=== PATIENT | male | born 1930 | race Hispanic/Latino ===

== ENCOUNTER 2018-04-29 15:52 | Inpatient (IN) | payer MEDICARE ==
[2018-04-29 15:58] VITALS: BMI 24.3
--- NOTE | 2018-04-29 17:43 | C.PDOC ---
History Of Present Illness <Felecia Begum - Last Filed: 04/29/18 19:01> <Ceci Young - Last Filed: 04/29/18 19:55> 87 y/o male with history of Colitis presents to ED with c/o increased weakness, diarrhea, urinary retention and hematuria for 4 days. As per family patient is unable to walk with walker secondary to weakness on lower extremities. Patient has normal appetite and denies fever, abdominal pain, vomiting, back pain or any other complaints at this time. (Felecia Begum) History Per: Patient, Family History/Exam Limitations: no limitations Onset/Duration Of Symptoms: Days Current Symptoms Are (Timing): Still Present Quality Of Discomfort: "Pain" Associated Symptoms: Urinary Symptoms <Felecia Begum - Last Filed: 04/29/18 19:01> <Ceci Young - Last Filed: 04/29/18 19:55> Time Seen by Provider: 04/29/18 16:53 Chief Complaint (Nursing): Male Genitourinary Past Medical History Reviewed: Historical Data, Nursing Documentation, Vital Signs - Medical History PMH: HTN Surgical History: Cholecystectomy Family History: States: No Known Family Hx - Social History Hx Alcohol Use: No Hx Substance Use: No - Immunization History Hx Tetanus Toxoid Vaccination: No Hx Influenza Vaccination: No Hx Pneumococcal Vaccination: Yes <Felecia Begum - Last Filed: 04/29/18 19:01> Vital Signs: Last Vital Signs Temp 98.9 F 04/29/18 17:45 Pulse 90 04/29/18 17:45 Resp 20 04/29/18 17:45 BP 143/76 04/29/18 17:45 Pulse Ox 97 04/29/18 19:04 Review Of Systems Constitutional: Negative for: Fever, Chills Gastrointestinal: Positive for: Diarrhea. Negative for: Nausea, Vomiting, Abdominal Pain Genitourinary: Positive for: Hematuria, Other (urinary retention ) Musculoskeletal: Negative for: Arm Pain, Back Pain Neurological: Positive for: Weakness. Negative for: Numbness <Felecia Begum - Last Filed: 04/29/18 19:01> Physical Exam - Physical Exam Appears: Non-toxic, No Acute Distress Skin: Warm, Dry, No Rash Head: Atraumatic, Normacephalic Eye(s): bilateral: Normal Inspection Oral Mucosa: Moist Throat: No Erythema, No Exudate Neck: Normal ROM, Supple Chest: Symmetrical, No Tenderness Cardiovascular: Rhythm Regular Respiratory: Decreased Breath Sounds, No Accessory Muscle Use, No Rales, No Rhonchi, No Wheezing Gastrointestinal/Abdominal: Soft, No Tenderness, No Guarding, No Rebound Back: No CVA Tenderness Extremity: Pedal Edema (bilateral ), Capillary Refill (<2 seconds), No Deformity Neurological/Psych: Oriented x3, Normal Speech, Normal Cognition, Normal Motor, Normal Sensation Gait: Steady <Felecia Begum - Last Filed: 04/29/18 19:01> ED Course And Treatment - Laboratory Results Result Diagrams: 04/29/18 18:22 04/29/18 18:22 O2 Sat by Pulse Oximetry: 97 (RA) Pulse Ox Interpretation: Normal <Felecia Begum - Last Filed: 04/29/18 19:01> - Laboratory Results Result Diagrams: 04/29/18 18:22 04/29/18 18:22 <Ceci Young - Last Filed: 04/29/18 19:55> Medical Decision Making <Felecia Begum - Last Filed: 04/29/18 19:01> <Ceci Young - Last Filed: 04/29/18 19:55> Medical Decision Making: blood cultures sent. Rocephin and Zithromax IV ordered. (Felecia Begum) Disposition - Disposition Disposition Time: 19:01 - POA Present On Arrival: None <Felecia Begum - Last Filed: 04/29/18 19:01> Discussed With : Andres Plasencia Comment: accepted the pt on his service and took over the care at 7:55 PM Doctor Will See Patient In The: ED Counseled Patient/Family Regarding: Studies Performed <Ceci Young - Last Filed: 04/29/18 19:55> - Disposition Disposition: HOSPITALIZED Condition: FAIR Forms: [facility] (Faroese) - Clinical Impression Clinical Impression: Pneumonia - PA / LAB[employer] / Resident Statement MD/DO has reviewed & agrees with the documentation as recorded. - Scribe Statement The provider has reviewed the documentation as recorded by the Scribe <Felecia Begum - Last Filed: 04/29/18 19:01> <Ceci Young - Last Filed: 04/29/18 19:55> - Scribe Statement Violet Peña All medical record entries made by the Scribe were at my direction and personally dictated by me. I have reviewed the chart and agree that the record accurately reflects my personal performance of the history, physical exam, medical decision making, and the department course for this patient. I have also personally directed, reviewed, and agree with the discharge instructions and disposition. (Felecia Begum) Physician Patient Turnover Patient Signed Over To: Ceci Young Handoff Comments: Pending admission <Felecia Begum - Last Filed: 04/29/18 19:01> Decision To Admit <Felecia Begum - Last Filed: 04/29/18 19:01> - Pt Status Changed To: Hospital Disposition Of: Inpatient - Admit Certification Admit to Inpatient:: After my assessment, the patient will require hospitalization for at least two midnights. This is because of the severity of symptoms shown, intensity of services needed, and/or the medical risk in this patient being treated as an outpatient. - InPatient: Physician Admission Certification: I certify that this patient requires 2 or more midnights of care for the following reason:: After my assessment, the patient will require hospitalization for at least two midnights. This is because of the severity of symptoms shown, intensity of services needed, and/or the medical risk in this patient being treated as an outpatient. - . Bed Request Type: Regular Admitting Physician: Andres Plasencia <Ceci Young - Last Filed: 04/29/18 19:55> - . Patient Diagnosis: Pneumonia
[2018-04-29 18:30] LABS: BASO # 0.1 K/uL (0.0-0.2); BASO % 0.4 % (0.0-2.0); EOS # 0.1 K/uL (0.0-0.7); EOS % 0.7 % (0.0-4.0); HEMOGLOBIN 12.4 g/dL (12.0-18.0); LYMPH # 1.5 K/uL (1.0-4.3); LYMPH % 7.9 % (20.0-40.0); MEAN CELL VOLUME 86.6 fL (80.0-94.0); MEAN CORPUSCULAR HEMOGLOBIN 29.1 pg (27.0-31.0); MEAN CORPUSCULAR HGB CONC 33.7 g/dL (33.0-37.0); MEAN PLATELET VOLUME 8.7 fL (7.2-11.7); MONO # 1.3 K/uL (0.0-0.8); MONO % 6.7 % (0.0-10.0); NEUT # 16.2 K/uL (1.8-7.0); NEUT % 84.3 % (50.0-75.0); PLATELET COUNT 214 K/uL (130-400); RBC 4.25 Mil/uL (4.40-5.90); RED CELL DISTRIBUTION WIDTH 14.3 % (11.5-14.5); WHITE BLOOD COUNT 19.2 K/uL (4.8-10.8)
--- NOTE | 2018-04-29 18:32 | RAD ---
Date of service: 04/29/2018 PROCEDURE: CHEST RADIOGRAPH, 1 VIEW HISTORY: weakness, cough COMPARISON: None available. FINDINGS: LUNGS: Extensive right lower lobe alveolar infiltrate likely pneumonia. PLEURA: No pneumothorax or pleural fluid seen. CARDIOVASCULAR: No radiographic findings to suggest acute or significant cardiovascular disease. OSSEOUS STRUCTURES: No significant abnormalities. VISUALIZED UPPER ABDOMEN: Normal. OTHER FINDINGS: None. IMPRESSION: Right lower lobe pneumonia.
[2018-04-29 18:34] LABS: INR 1.2; PROTHROMBIN TIME 13.5 SECONDS (9.7-12.2)
[2018-04-29 18:49] LABS: ALB/GLOB RATIO 1.2 (1.0-2.1); ALBUMIN 3.8 g/dL (3.5-5.0); GFR AFRICAN-AMERICAN > 60; GFR NON-AFRICAN AMERICAN > 60
[2018-04-29 18:53] LABS: URINE BILIRUBIN NEGATIVE (NEGATIVE); URINE BLOOD 1+ (NEGATIVE); URINE CLARITY Clear (Clear); URINE COLOR Yellow (YELLOW); URINE GLUCOSE (UA) NORMAL (Normal); URINE HYALINE CAST 0-2 /lpf (0-2); URINE LEUKOCYTE ESTERASE NEG Leu/uL (Negative); URINE PROTEIN 1+ mg/dL (NEGATIVE); URINE UROBILINOGEN NORMAL mg/dL (0.2-1.0)
[2018-04-29 18:57] LABS: ALT/SGPT 105 U/L (21-72); AST/SGOT 229 U/L (17-59); BLOOD UREA NITROGEN 30 mg/dL (9-20)
[2018-04-29 18:58] LABS: B-TYPE NATRIURETIC PEPTIDE 295 pg/mL (0-900); CK-MB 4.51 ng/mL (0.0-3.38)
[2018-04-29] MEDS ORDERED: cefTRIAXone IV 1 gm in Dextros 50 ML IV ONE (18:58)
[2018-04-29] MEDS ORDERED: Azithromycin 500mg/250ML NS 500 MG/250 ML BAG IVPB STA ×2 (19:00→20:00)
[2018-04-29 19:44] LABS: VENOUS BLOOD GAS BASE EXCESS 2.7 mmol/L (0.0-2.0); VENOUS BLOOD GAS PCO2 36 mmHg (40-60); VENOUS BLOOD GAS PO2 49 mm/Hg (30-55); VENOUS BLOOD PH 7.47 (7.32-7.43)
[2018-04-29 19:49] LABS: LYMPHOCYTE 13 % (20-40); MONOCYTE 6 % (0-10); NEUTROPHIL 81 % (50-75); PLATELET ESTIMATE NORMAL (NORMAL); TOTAL CELLS COUNTED 100
[2018-04-29] MEDS ORDERED: Lactated Ringer's 1,000 ML ONE (20:00)
[2018-04-29 22:15] LABS: VENOUS BLOOD GAS BASE EXCESS 2.2 mmol/L (0.0-2.0); VENOUS BLOOD GAS PCO2 33 mmHg (40-60); VENOUS BLOOD GAS PO2 65 mm/Hg (30-55); VENOUS BLOOD PH 7.49 (7.32-7.43)
--- NOTE | 2018-04-29 22:37 | CP.PCM.HP ---
<Elle Hammonds - Last Filed: 04/30/18 04:59> History of Present Illness - History of Present Illness History of Present Illness: HPI: Patient is an 87 year old male with a past medical history of hypertension. Patient is a poor historian and states he is not sure why he came to the hospital and that his PMD sent him to the ER. The patient is oriented to place, but does not respond to questioning about time. Per the ER physician, the patient was brought in due to weakness. Chest xray was ordered while in ED and showed right lower lobe pneumonia. The patient has no complaints at time of examination. He states that he occasionally has a cough, but denies having a cough currently. Remaining review of systems was negative. PMD: Dr. Henderson PMHx: HTN SurgHx: denies; per EMR- cholecystectomy FamHx: unknown SocHx: denies tobacco/alcohol/drug use Allergies: NKDA Medications: "medication for blood pressure" Present on Admission - Present on Admission Any Indicators Present on Admission: No Review of Systems - Review of Systems Systems not reviewed;Unavailable: Altered Mental Status, Uncooperative Past Patient History - Past Social History Smoking Status: Never Smoked - CARDIAC Hx Hypertension: Yes - GASTROINTESTINAL Hx Gastrointestinal Disorders: Yes Hx Colitis: Yes - PSYCHIATRIC Hx Substance Use: No - SURGICAL HISTORY Hx Cholecystectomy: Yes - ANESTHESIA Hx Anesthesia: Yes Hx Anesthesia Reactions: No Meds Allergies/Adverse Reactions: Allergies Allergy/AdvReac Type Severity Reaction Status Date / Time No Known Allergies Allergy Verified 04/29/18 15:55 Physical Exam - Constitutional Appears: No Acute Distress - Head Exam Head Exam: ATRAUMATIC, NORMAL INSPECTION - Eye Exam Eye Exam: EOMI, Normal appearance - ENT Exam ENT Exam: Mucous Membranes Moist - Respiratory Exam Respiratory Exam: Decreased Breath Sounds, NORMAL BREATHING PATTERN. absent: Rales, Rhonchi, Wheezes, Respiratory Distress - Cardiovascular Exam Cardiovascular Exam: REGULAR RHYTHM, +S1, +S2 - GI/Abdominal Exam GI & Abdominal Exam: Normal Bowel Sounds, Soft. absent: Distended, Firm, Mass - Extremities Exam Extremities exam: Positive for: normal inspection, pedal pulses present. Negative for: pedal edema, tenderness - Neurological Exam Neurological exam: Alert, Altered - Psychiatric Exam Psychiatric exam: Normal Affect, Normal Mood - Skin Skin Exam: Dry, Intact, Warm Results - Vital Signs Recent Vital Signs: Last Vital Signs Temp 99.1 F 04/29/18 22:04 Pulse 88 04/29/18 22:04 Resp 18 04/29/18 22:04 BP 136/62 04/29/18 22:04 Pulse Ox 98 04/29/18 22:04 - Labs Result Diagrams: 04/29/18 18:22 04/29/18 18:22 Labs: Laboratory Results - last 24 hr 04/29/18 04/29/18 04/29/18 10:11 18:22 18:22 WBC 19.2 H RBC 4.25 L Hgb 12.4 D Hct 36.8 MCV 86.6 MCH 29.1 MCHC 33.7 RDW 14.3 Plt Count 214 MPV 8.7 Neut % (Auto) 84.3 H Lymph % (Auto) 7.9 L [place] % (Auto) 6.7 Eos % (Auto) 0.7 Baso % (Auto) 0.4 Neut # (Auto) 16.2 H Lymph # (Auto) 1.5 [place] # (Auto) 1.3 H Eos # (Auto) 0.1 Baso # (Auto) 0.1 Neutrophils % (Manual) 81 H Lymphocytes % (Manual) 13 L Monocytes % (Manual) 6 Platelet Estimate Normal PT INR APTT pO2 65 H VBG pH 7.49 H VBG pCO2 33 L VBG HCO3 26.6 VBG Total CO2 26.1 VBG O2 Sat (Calc) 96.0 H VBG Base Excess 2.2 H VBG Potassium 2.9 L Sodium 139.0 136 Chloride 109.0 H 94 L Glucose 98 Lactate 0.9 FiO2 21.0 Potassium 4.5 Carbon Dioxide 31 H Anion Gap 16 BUN 30 H Creatinine 0.8 Est GFR ( Amer) > 60 Est GFR (Non-Af Amer) > 60 Random Glucose 115 H Calcium 9.0 Phosphorus Magnesium Total Bilirubin 1.5 H AST 229 H D ALT 105 H D Alkaline Phosphatase 315 H D Total Creatine Kinase 236 H CK-MB (Mass) 4.51 H NT-Pro-B Natriuret Pep 295 Total Protein 7.0 Albumin 3.8 Globulin 3.2 Albumin/Globulin Ratio 1.2 Venous Blood Potassium 2.9 L Urine Color Urine Clarity Urine pH Ur Specific [place] Urine Protein Urine Glucose (UA) Urine Ketones Urine Blood Urine Nitrate Urine Bilirubin Urine Urobilinogen Ur Leukocyte Esterase Urine WBC (Auto) Urine RBC (Auto) Hyaline Casts 04/29/18 04/29/18 04/29/18 18:22 18:42 19:38 WBC RBC Hgb Hct MCV MCH MCHC RDW Plt Count MPV Neut % (Auto) Lymph % (Auto) [place] % (Auto) Eos % (Auto) Baso % (Auto) Neut # (Auto) Lymph # (Auto) [place] # (Auto) Eos # (Auto) Baso # (Auto) Neutrophils % (Manual) Lymphocytes % (Manual) Monocytes % (Manual) Platelet Estimate PT 13.5 H INR 1.2 APTT 39 H pO2 VBG pH VBG pCO2 VBG HCO3 VBG Total CO2 VBG O2 Sat (Calc) VBG Base Excess VBG Potassium Sodium Chloride Glucose Lactate FiO2 Potassium Carbon Dioxide Anion Gap BUN Creatinine Est GFR ( Amer) Est GFR (Non-Af Amer) Random Glucose Calcium Phosphorus 2.8 Magnesium 1.7 Total Bilirubin AST ALT Alkaline Phosphatase Total Creatine Kinase CK-MB (Mass) NT-Pro-B Natriuret Pep Total Protein Albumin Globulin Albumin/Globulin Ratio Venous Blood Potassium Urine Color Yellow Urine Clarity Clear Urine pH 6.0 Ur Specific [place] 1.016 Urine Protein 1+ H Urine Glucose (UA) Normal Urine Ketones Negative Urine Blood 1+ H Urine Nitrate Negative Urine Bilirubin Negative Urine Urobilinogen Normal Ur Leukocyte Esterase Neg Urine WBC (Auto) 1 Urine RBC (Auto) 6 H Hyaline Casts 0-2 04/29/18 19:40 WBC RBC Hgb Hct MCV MCH MCHC RDW Plt Count MPV Neut % (Auto) Lymph % (Auto) [place] % (Auto) Eos % (Auto) Baso % (Auto) Neut # (Auto) Lymph # (Auto) [place] # (Auto) Eos # (Auto) Baso # (Auto) Neutrophils % (Manual) Lymphocytes % (Manual) Monocytes % (Manual) Platelet Estimate PT INR APTT pO2 49 VBG pH 7.47 H VBG pCO2 36 L VBG HCO3 26.7 VBG Total CO2 27.3 VBG O2 Sat (Calc) 88.1 H VBG Base Excess 2.7 H VBG Potassium 2.8 L Sodium 140.0 Chloride 107.0 Glucose 95 Lactate 1.1 FiO2 21.0 Potassium Carbon Dioxide Anion Gap BUN Creatinine Est GFR ( Amer) Est GFR (Non-Af Amer) Random Glucose Calcium Phosphorus Magnesium Total Bilirubin AST ALT Alkaline Phosphatase Total Creatine Kinase CK-MB (Mass) NT-Pro-B Natriuret Pep Total Protein Albumin Globulin Albumin/Globulin Ratio Venous Blood Potassium 2.8 L Urine Color Urine Clarity Urine pH Ur Specific [place] Urine Protein Urine Glucose (UA) Urine Ketones Urine Blood Urine Nitrate Urine Bilirubin Urine Urobilinogen Ur Leukocyte Esterase Urine WBC (Auto) Urine RBC (Auto) Hyaline Casts Assessment & Plan - Assessment and Plan (Free Text) Assessment: Pneumonia - Afebrile - Leukocytosis - CXR: right lower lobe pneumonia - Chest CT: right middle and lower lobe pneumonia - Strep pneumo, mycoplasma pneumo, legionella: f/u - Blood cx: f/u - Procalcitonin: f/u - O2 via NC - Azithromycin 500mg IV daily - Rocephin 1gm IV daily - Continue to monitor Elevated LFTs - Abdomen CT: unremarkable - Continue to monitor labs Hypertension - Continue home medication: Metoprolol 25mg po daily Prophylaxis - DVT: SCDs, heparin 5000u SC Q12h - GI: not indicated - PT/OT <Andres Plasencia P - Last Filed: 04/30/18 06:45> Results - Vital Signs Recent Vital Signs: Last Vital Signs Temp 99 F 04/29/18 23:18 Pulse 70 04/29/18 23:18 Resp 20 04/29/18 23:18 BP 125/72 04/29/18 23:18 Pulse Ox 95 04/29/18 23:18 - Labs Result Diagrams: 04/29/18 18:22 04/29/18 18:22 Labs: Laboratory Results - last 24 hr 04/29/18 04/29/18 04/29/18 10:11 18:22 18:22 WBC 19.2 H RBC 4.25 L Hgb 12.4 D Hct 36.8 MCV 86.6 MCH 29.1 MCHC 33.7 RDW 14.3 Plt Count 214 MPV 8.7 Neut % (Auto) 84.3 H Lymph % (Auto) 7.9 L [place] % (Auto) 6.7 Eos % (Auto) 0.7 Baso % (Auto) 0.4 Neut # (Auto) 16.2 H Lymph # (Auto) 1.5 [place] # (Auto) 1.3 H Eos # (Auto) 0.1 Baso # (Auto) 0.1 Neutrophils % (Manual) 81 H Lymphocytes % (Manual) 13 L Monocytes % (Manual) 6 Platelet Estimate Normal PT INR APTT pO2 65 H VBG pH 7.49 H VBG pCO2 33 L VBG HCO3 26.6 VBG Total CO2 26.1 VBG O2 Sat (Calc) 96.0 H VBG Base Excess 2.2 H VBG Potassium 2.9 L Sodium 139.0 136 Chloride 109.0 H 94 L Glucose 98 Lactate 0.9 FiO2 21.0 Potassium 4.5 Carbon Dioxide 31 H Anion Gap 16 BUN 30 H Creatinine 0.8 Est GFR ( Amer) > 60 Est GFR (Non-Af Amer) > 60 Random Glucose 115 H Calcium 9.0 Phosphorus Magnesium Total Bilirubin 1.5 H AST 229 H D ALT 105 H D Alkaline Phosphatase 315 H D Total Creatine Kinase 236 H CK-MB (Mass) 4.51 H NT-Pro-B Natriuret Pep 295 Total Protein 7.0 Albumin 3.8 Globulin 3.2 Albumin/Globulin Ratio 1.2 Venous Blood Potassium 2.9 L Urine Color Urine Clarity Urine pH Ur Specific [place] Urine Protein Urine Glucose (UA) Urine Ketones Urine Blood Urine Nitrate Urine Bilirubin Urine Urobilinogen Ur Leukocyte Esterase Urine WBC (Auto) Urine RBC (Auto) Hyaline Casts 04/29/18 04/29/18 04/29/18 18:22 18:42 19:38 WBC RBC Hgb Hct MCV MCH MCHC RDW Plt Count MPV Neut % (Auto) Lymph % (Auto) [place] % (Auto) Eos % (Auto) Baso % (Auto) Neut # (Auto) Lymph # (Auto) [place] # (Auto) Eos # (Auto) Baso # (Auto) Neutrophils % (Manual) Lymphocytes % (Manual) Monocytes % (Manual) Platelet Estimate PT 13.5 H INR 1.2 APTT 39 H pO2 VBG pH VBG pCO2 VBG HCO3 VBG Total CO2 VBG O2 Sat (Calc) VBG Base Excess VBG Potassium Sodium Chloride Glucose Lactate FiO2 Potassium Carbon Dioxide Anion Gap BUN Creatinine Est GFR ( Amer) Est GFR (Non-Af Amer) Random Glucose Calcium Phosphorus 2.8 Magnesium 1.7 Total Bilirubin AST ALT Alkaline Phosphatase Total Creatine Kinase CK-MB (Mass) NT-Pro-B Natriuret Pep Total Protein Albumin Globulin Albumin/Globulin Ratio Venous Blood Potassium Urine Color Yellow Urine Clarity Clear Urine pH 6.0 Ur Specific [place] 1.016 Urine Protein 1+ H Urine Glucose (UA) Normal Urine Ketones Negative Urine Blood 1+ H Urine Nitrate Negative Urine Bilirubin Negative Urine Urobilinogen Normal Ur Leukocyte Esterase Neg Urine WBC (Auto) 1 Urine RBC (Auto) 6 H Hyaline Casts 0-2 04/29/18 19:40 WBC RBC Hgb Hct MCV MCH MCHC RDW Plt Count MPV Neut % (Auto) Lymph % (Auto) [place] % (Auto) Eos % (Auto) Baso % (Auto) Neut # (Auto) Lymph # (Auto) [place] # (Auto) Eos # (Auto) Baso # (Auto) Neutrophils % (Manual) Lymphocytes % (Manual) Monocytes % (Manual) Platelet Estimate PT INR APTT pO2 49 VBG pH 7.47 H VBG pCO2 36 L VBG HCO3 26.7 VBG Total CO2 27.3 VBG O2 Sat (Calc) 88.1 H VBG Base Excess 2.7 H VBG Potassium 2.8 L Sodium 140.0 Chloride 107.0 Glucose 95 Lactate 1.1 FiO2 21.0 Potassium Carbon Dioxide Anion Gap BUN Creatinine Est GFR ( Amer) Est GFR (Non-Af Amer) Random Glucose Calcium Phosphorus Magnesium Total Bilirubin AST ALT Alkaline Phosphatase Total Creatine Kinase CK-MB (Mass) NT-Pro-B Natriuret Pep Total Protein Albumin Globulin Albumin/Globulin Ratio Venous Blood Potassium 2.8 L Urine Color Urine Clarity Urine pH Ur Specific [place] Urine Protein Urine Glucose (UA) Urine Ketones Urine Blood Urine Nitrate Urine Bilirubin Urine Urobilinogen Ur Leukocyte Esterase Urine WBC (Auto) Urine RBC (Auto) Hyaline Casts Attending/Attestation - Attestation I have personally seen and examined this patient.: Yes I have fully participated in the care of the patient.: Yes I have reviewed all pertinent clinical information: Yes Notes (Text): 04/30/18 06:39 Assessment * Patient brought to the hospital with c/o weakness, difficulty in walking, no fever, but had some cough, labs showing leucocytosis, transaminitis. * CT confirm right middle and lower lobe consolidation, patient on exam neither sob or hypoxic or febrile hence should be followed up with CXR in about 1-2 months for complete resolution. * Dementia/language barrier hence limited information * Slight transaminitis likely due to proximity to consolidation. Plan * Abx iv * IVF * GI/DVT prophylaxis * Home meds to confirm along with pmh with family and pmd * See orders for detail.
[2018-04-30] MEDS: Sodium Chloride 0.9% 1,000 ML IV SCH ×2 (01:35→14:44)
[2018-04-30 07:47] LABS: BASO # 0.1 K/uL (0.0-0.2); BASO % 0.5 % (0.0-2.0); EOS # 0.1 K/uL (0.0-0.7); EOS % 0.6 % (0.0-4.0); HEMOGLOBIN 11.1 g/dL (12.0-18.0); LYMPH % 6.1 % (20.0-40.0); MEAN CELL VOLUME 86.8 fL (80.0-94.0); MEAN CORPUSCULAR HEMOGLOBIN 29.4 pg (27.0-31.0); MEAN CORPUSCULAR HGB CONC 33.8 g/dL (33.0-37.0); MEAN PLATELET VOLUME 8.5 fL (7.2-11.7); MONO % 6.3 % (0.0-10.0); NEUT # 14.1 K/uL (1.8-7.0); NEUT % 86.5 % (50.0-75.0); PLATELET COUNT 186 K/uL (130-400); RBC 3.77 Mil/uL (4.40-5.90); RED CELL DISTRIBUTION WIDTH 14.2 % (11.5-14.5); WHITE BLOOD COUNT 16.3 K/uL (4.8-10.8)
--- NOTE | 2018-04-30 07:52 | CP.PCM.PN ---
<Sana Cohen L - Last Filed: 04/30/18 20:24> Subjective - Date & Time of Evaluation Date of Evaluation: 04/30/18 Time of Evaluation: 07:52 - Subjective Subjective: Resident Progress Note for Hospitalist Service Patient examined at bedside. Patient's was present. Patient was resting comfortably in bed and eating. No acute events overnight. Denies chest pain, shortness of breath, abdominal pain, nausea, vomiting, changes in bowel movements, dysuria. Objective - Vital Signs/Intake and Output Vital Signs (last 24 hours): Temp Pulse Resp BP Pulse Ox 99 F 70 20 125/72 95 04/29/18 23:18 04/29/18 23:18 04/29/18 23:18 04/29/18 23:18 04/29/18 23:18 - Medications Medications: Current Medications Heparin Sodium (Porcine) (Heparin) 5,000 units SC Q12 [facility] Sodium Chloride (Sodium Chloride 0.9%) 1,000 mls @ 75 mls/hr IV .[id number] [facility] Last Admin: 04/30/18 01:35 Dose: 75 mls/hr Azithromycin 500 mg/ Sodium (Chloride) 250 mls @ 250 mls/hr IVPB DAILY [facility] PRN Reason: Protocol Ceftriaxone Sodium 1 gm/ (Sodium Chloride) 100 mls @ 100 mls/hr IVPB DAILY [facility] PRN Reason: Protocol Metoprolol Succinate (Toprol Xl) 25 mg PO DAILY [facility] - Labs Labs: 04/29/18 18:22 04/29/18 18:22 PT 13.5 SECONDS (9.7-12.2) H 04/29/18 18:22 INR 1.2 04/29/18 18:22 APTT 39 SECONDS (21-34) H 04/29/18 18:22 - Constitutional Appears: Well, No Acute Distress - Head Exam Head Exam: NORMOCEPHALIC Additional comments: Small abrasions on head from recent fall - Eye Exam Eye Exam: EOMI, Normal appearance - ENT Exam ENT Exam: Mucous Membranes Moist, Normal Exam - Neck Exam Neck Exam: Full ROM, Normal Inspection - Respiratory Exam Respiratory Exam: NORMAL BREATHING PATTERN. absent: Rhonchi, Wheezes, Respiratory Distress Additional comments: Crackles in right lower lung velasquez - Cardiovascular Exam Cardiovascular Exam: REGULAR RHYTHM, +S1, +S2 - GI/Abdominal Exam GI & Abdominal Exam: Soft, Normal Bowel Sounds. absent: Distended, Firm, Tenderness, Organomegaly - Extremities Exam Extremities Exam: Normal Capillary Refill, Normal Inspection. absent: Tenderness - Back Exam Back Exam: NORMAL INSPECTION - Neurological Exam Neurological Exam: Alert, Awake - Psychiatric Exam Psychiatric exam: Normal Affect, Normal Mood - Skin Skin Exam: Dry, Intact Additional comments: Ecchymosis on right hip from fall Assessment and Plan - Assessment and Plan (Free Text) Plan: Pneumonia - Afebrile - Leukocytosis trending down - CXR shows right lower lobe pneumonia - Chest CT shows right middle and lower lobe pneumonia - Follow up Strep pneumo, mycoplasma pneumo, legionella - Followup blood cx - Followup procalcitonin - O2 via NC - Azithromycin 500mg IV daily - Rocephin 1gm IV daily - Continue to monitor Fall - Patient has history of CVA with residual left sided weakness - Patient typically uses walker at home - Head CT shows mild to moderate chronic periventricular white matter ischemic changes multiple more discrete deep and subcortical white matter as well basal nuclei and possibly brainstem lacunar type infarcts. Moderate to significant generalized volume loss. Transaminitis - LFTs trending down - Abdomen CT: Inferior margin of the unenhanced liver incompletely visualized. The visualized portions of the liver unremarkable without masses collections or calcifications. Cholecystectomy. - Continue to monitor labs Hypertension - Continue home medication: Metoprolol 25mg po daily - Heart healthy diet - Patient's cardiology history is unclear. Cardio Dr. Bliss consulted. Appreciate recs. History of ulcerative colitis - GI consulted. Appreciate recs. Prophylaxis - DVT: SCDs, heparin 5000u SC Q12h - GI: not indicated - Lactobacillus acidophilus 1 cap PO BID - PT/OT Sana Cohen PGY-1 <Micky Faust - Last Filed: 05/02/18 22:53> Objective - Vital Signs/Intake and Output Vital Signs (last 24 hours): Temp Pulse Resp BP Pulse Ox 98 F 86 20 150/72 96 05/02/18 15:47 05/02/18 15:47 05/02/18 15:47 05/02/18 15:47 05/02/18 15:47 Intake and Output: 05/02/18 05/03/18 18:59 06:59 Intake Total 650 Balance 650 - Medications Medications: Current Medications Aspirin (Aspirin Chewable) 81 mg PO DAILY [facility] Last Admin: 05/02/18 09:55 Dose: 81 mg Heparin Sodium (Porcine) (Heparin) 5,000 units SC Q12 [facility] Last Admin: 05/02/18 22:04 Dose: 5,000 units Azithromycin 500 mg/ Sodium (Chloride) 250 mls @ 250 mls/hr IVPB DAILY [facility] PRN Reason: Protocol Last Admin: 05/02/18 10:54 Dose: 250 mls/hr Piperacillin Sod/Tazobactam Sod (Zosyn 3.375 Gm Iv Premix) 3.375 gm in 50 mls @ 100 mls/hr IVPB Q8H [facility] PRN Reason: Protocol Last Admin: 05/02/18 22:04 Dose: 100 mls/hr Lactobacillus Acidophilus (Bacid Acidophilus) 1 cap PO BID [facility] Last Admin: 05/02/18 17:52 Dose: 1 cap Metoprolol Succinate (Toprol Xl) 25 mg PO DAILY [facility] Last Admin: 05/02/18 09:55 Dose: 25 mg Potassium Chloride (K-Dur 20 Meq Er Tab) 20 meq PO DAILY [facility] Last Admin: 05/02/18 09:55 Dose: 20 meq Rosuvastatin Calcium (Crestor) 5 mg PO HS [facility] Last Admin: 05/01/18 21:28 Dose: 5 mg - Labs Labs: 05/02/18 07:27 05/02/18 07:27 PT 13.5 SECONDS (9.7-12.2) H 04/29/18 18:22 INR 1.2 04/29/18 18:22 APTT 39 SECONDS (21-34) H 04/29/18 18:22 Attending/Attestation - Attestation I have personally seen and examined this patient.: Yes I have fully participated in the care of the patient.: Yes I have reviewed all pertinent clinical information, including history, physical exam and plan: Yes Notes (Text): 05/02/18 22:52 This is a late entry Care of this patient was gone over in detail with resident Dr. Vicki Faust D.O.
[2018-04-30 07:58] LABS: ALB/GLOB RATIO 1.1 (1.0-2.1); ALT/SGPT 67 U/L (21-72); AST/SGOT 106 U/L (17-59); BLOOD UREA NITROGEN 19 mg/dL (9-20); CALCIUM 8.5 mg/dl (8.6-10.4); GFR AFRICAN-AMERICAN > 60; GFR NON-AFRICAN AMERICAN > 60
[2018-04-30 09:58] LABS: BANDS 1 % (0-2); EOSINOPHIL 1 % (0-4); LYMPHOCYTE 5 % (20-40); MONOCYTE 5 % (0-10); NEUTROPHIL 88 % (50-75); PLATELET ESTIMATE NORMAL (NORMAL); TOTAL CELLS COUNTED 100
--- NOTE | 2018-04-30 10:17 | CT ---
Date of service: 04/30/2018 PROCEDURE: CT Chest and abdomen without intravenous and oral contrast HISTORY: Abnormal chest radiograph; elevated lfts COMPARISON: No prior study available for comparison. However correlation made with chest x-ray obtained earlier same day TECHNIQUE: IV dose administered: Radiation dose: Total exam DLP = mGy-cm. This CT exam was performed using one or more of the following dose reduction techniques: Automated exposure control, adjustment of the mA and/or kV according to patient size, and/or use of iterative reconstruction technique. FINDINGS: CT CHEST: LUNGS: Re- demonstrated to better advantage is right middle lobe and to a lesser degree right lower lobe consolidation changes likely representing pneumonia. There also mild atelectasis/ present both posterior sulci. Vague ground-glass opacities seen both lower lung velasquez. Centrilobular emphysematous changes. MEDIASTINUM: Heart size mildly enlarged. There is a small pericardial effusion. 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 Ascending thoracic aorta measures approximately 3.15 cm. Pulmonary trunk measures approximately 2.7 cm. LYMPH NODES: Few small nonspecific mediastinal lymph nodes are present one or 2 of which appear calcified consistent with prior exposure to granulomatous disease process. . Evaluation for hilar adenopathy is limited due to the lack of circulating intravenous contrast material. PLEURA: Unremarkable. No pneumothorax. No pleural fluid. BONES: Mild multilevel degenerative spondylosis of the thoracic spine. Sclerotic lesion within the T5 segment likely representing bone island or osteoma. Chronic compression deformity of the L2 segment. . Questionable old healed left posterior 11th and 12th rib fracture deformities. OTHER FINDINGS:: Central airways midline and patent. No large central endoluminal lesion. There is a small hiatal hernia. CT ABDOMEN: LIVER: Inferior margin of the unenhanced liver incompletely visualized. The visualized portions of the liver unremarkable without masses collections or calcifications. GALLBLADDER AND BILE DUCTS: Cholecystectomy. PANCREAS: Unre visualized portions the pancreas appear unremarkable. SPLEEN: Spleen is enlarged measuring just over 14 cm in AP dimension. No obvious splenic mass collection or calcification. ADRENALS: No adrenal lesions. . KIDNEYS AND URETERS: The inferior kidneys are not visualized on this exam. Visualized portions of the kidneys unremarkable without evidence of nephrolithiasis or hydronephrosis. No obvious renal mass or collection. Urinary bladder not visualized. VASCULATURE: Unremarkable. No aortic aneurysm. STOMACH AND BOWEL: Unremarkable, as visualized. . Note that the entire bowel including appendix was not visualized, as the pelvis was not included in this study. PERITONEUM: Unremarkable. No free fluid. No free air. LYMPH NODES: Unremarkable. No enlarged lymph nodes. BONES: Chronic appearing anterior wedge compression fracture L2 segment. OTHER FINDINGS: None. IMPRESSION: Right middle lobe and lower lobe infiltrate. Mild atelectasis both posterior sulci. Vague ground-glass opacities both lower lung zones. Centrilobular emphysematous changes. 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 Cardiomegaly with small pericardial effusion. Limited evaluation of the abdomen demonstrates no acute abnormalities. Chronic compression fracture L2 segment. Mild splenomegaly. Cholecystectomy Preliminary report provided by overnight radiology service
[2018-04-30] MEDS: Metoprolol Succinate 25 mg XL Tab PO SCH (10:46)
[2018-04-30] MEDS: Azithromycin 500 MG in Sodium Chloride 0.9% 250 ML IVPB SCH (12:06)
--- NOTE | 2018-04-30 16:03 | CT ---
Date of service: 04/30/2018 PROCEDURE: CT HEAD WITHOUT CONTRAST. HISTORY: History of CVA. C/O Weakness slinking to ground. COMPARISON: None available. TECHNIQUE: Axial computed tomography images were obtained through the head/brain without intravenous contrast. Radiation dose: Total exam DLP = 907.5 mGy-cm. This CT exam was performed using one or more of the following dose reduction techniques: Automated exposure control, adjustment of the mA and/or kV according to patient size, and/or use of iterative reconstruction technique. FINDINGS: HEMORRHAGE: No acute parenchymal, subarachnoid nor extra-axial BRAIN: Mild to moderate chronic periventricular white matter ischemic changes multiple more discrete deep and subcortical white matter as well basal nuclei and possibly brainstem lacunar type infarcts. Moderate to significant generalized volume loss. Vascular calcifications both carotid siphons VENTRICLES: No obstructive hydrocephalus. CALVARIUM: No acute calvarial fractures. PARANASAL SINUSES: Unremarkable as visualized. No significant inflammatory changes. MASTOID AIR CELLS: Unremarkable as visualized. No inflammatory changes. OTHER FINDINGS: None. IMPRESSION: Mild to moderate chronic periventricular white matter ischemic changes multiple more discrete deep and subcortical white matter as well basal nuclei and possibly brainstem lacunar type infarcts. Moderate to significant generalized volume loss.
--- NOTE | 2018-04-30 17:36 | CP.PCM.CON ---
History of Present Illness - History of Present Illness History of Present Illness: This is an 87 year old man with a history of ulcerative colitis admitted with pneumonia. Patient is known to me from the office. He has a long history of ulcerative colitis, 25 years, but has not had a flare up in many years. The last colonoscopy was 03/01/2015 and showed pseudopolyps in the descending colon and quiescent colitis. Patient was admitted 04/29/18 with weakness, diarrhea, urinary retentin and hematuria. Evaluation in the ER showed leukocytosis, WBC 19,200, and RML and RLL infiltrate on CT scan. He mentioned diarrhea to the ER physicians. However , during my interview, he states that did not have diarrhea at home and has not had a bowel movement since he was admitted to . He denies having nausea, vomiting, difficulty swallowing, heartburn, constipation and rectal beeding. Abnormal liver enzymes were also noted: AST 229, ALT 105, ALKP 315. Repeat values were as follows: AST 106, ALT 67, ALKP 238. Non contrast CT images of the liver showed S/P cholecystectomy and no other significant abnormalities. Review of Systems - Review of Systems All systems: reviewed and no additional remarkable complaints except - Constitutional Constitutional: Weakness. absent: Chills, Fever - Gastrointestinal Gastrointestinal: absent: Abdominal Pain, Constipation, Dysphagia, Heartburn, Hematochezia, Nausea, Vomiting - Genitourinary Genitourinary: Hematuria, Bladder Distension - Neurological Neurological: Weakness. absent: Numbness Past Patient History - Past Medical History & Family History Past Medical History?: Yes - Past Social History Smoking Status: Never Smoked - CARDIAC Hx Hypertension: Yes - PULMONARY Hx Respiratory Disorders: No - NEUROLOGICAL Hx Neurological Disorder: No - HEENT Hx HEENT Problems: No - RENAL Hx Chronic Kidney Disease: No - ENDOCRINE/METABOLIC Hx Endocrine Disorders: No - HEMATOLOGICAL/ONCOLOGICAL Hx Blood Disorders: No - INTEGUMENTARY Hx Dermatological Problems: No - MUSCULOSKELETAL/RHEUMATOLOGICAL Hx Falls: Yes - GASTROINTESTINAL Hx Gastrointestinal Disorders: Yes Hx Colitis: Yes - GENITOURINARY/GYNECOLOGICAL Hx Genitourinary Disorders: No - PSYCHIATRIC Hx Substance Use: No - SURGICAL HISTORY Hx Cholecystectomy: Yes - ANESTHESIA Hx Anesthesia: Yes Hx Anesthesia Reactions: No Meds Allergies/Adverse Reactions: Allergies Allergy/AdvReac Type Severity Reaction Status Date / Time No Known Allergies Allergy Verified 04/29/18 15:55 - Medications Medications: Current Medications Aspirin (Aspirin Chewable) 81 mg PO DAILY [facility] Heparin Sodium (Porcine) (Heparin) 5,000 units SC Q12 [facility] Last Admin: 04/30/18 10:46 Dose: 5,000 units Sodium Chloride (Sodium Chloride 0.9%) 1,000 mls @ 75 mls/hr IV .[id number] [facility] Last Admin: 04/30/18 14:44 Dose: 75 mls/hr Azithromycin 500 mg/ Sodium (Chloride) 250 mls @ 250 mls/hr IVPB DAILY [facility] PRN Reason: Protocol Last Admin: 04/30/18 12:06 Dose: 250 mls/hr Ceftriaxone Sodium 1 gm/ (Sodium Chloride) 100 mls @ 100 mls/hr IVPB DAILY [facility] PRN Reason: Protocol Last Admin: 04/30/18 10:45 Dose: 100 mls/hr Lactobacillus Acidophilus (Bacid Acidophilus) 1 cap PO BID [facility] Metoprolol Succinate (Toprol Xl) 25 mg PO DAILY [facility] Last Admin: 04/30/18 10:46 Dose: 25 mg Rosuvastatin Calcium (Crestor) 5 mg PO HS [facility] Physical Exam - Constitutional Appears: No Acute Distress - Head Exam Head Exam: ATRAUMATIC, NORMOCEPHALIC - Eye Exam Eye Exam: EOMI, PERRL - Neck Exam Neck exam: Negative for: Lymphadenopathy, Thyromegaly - Respiratory Exam Respiratory Exam: NORMAL BREATHING PATTERN. absent: Rales, Rhonchi, Wheezes - Cardiovascular Exam Cardiovascular Exam: REGULAR RHYTHM, +S1, +S2. absent: Gallop, Rubs, Systolic Murmur - GI/Abdominal Exam GI & Abdominal Exam: Normal Bowel Sounds, Soft. absent: Mass, Organomegaly, Tenderness - Rectal Exam Rectal Exam: Deferred - Extremities Exam Extremities exam: Negative for: calf tenderness, pedal edema Results - Vital Signs Recent Vital Signs: Last Vital Signs Temp 98.9 F 04/30/18 16:15 Pulse 84 04/30/18 16:15 Resp 20 04/30/18 16:15 BP 98/59 L 04/30/18 16:15 Pulse Ox 100 04/30/18 16:15 - Labs Result Diagrams: 04/30/18 07:33 04/30/18 07:33 Labs: Laboratory Results - last 24 hr 04/29/18 04/29/18 04/29/18 10:11 18:22 18:22 WBC 19.2 H RBC 4.25 L Hgb 12.4 D Hct 36.8 MCV 86.6 MCH 29.1 MCHC 33.7 RDW 14.3 Plt Count 214 MPV 8.7 Neut % (Auto) 84.3 H Lymph % (Auto) 7.9 L [place] % (Auto) 6.7 Eos % (Auto) 0.7 Baso % (Auto) 0.4 Neut # (Auto) 16.2 H Lymph # (Auto) 1.5 [place] # (Auto) 1.3 H Eos # (Auto) 0.1 Baso # (Auto) 0.1 Neutrophils % (Manual) 81 H Band Neutrophils % Lymphocytes % (Manual) 13 L Monocytes % (Manual) 6 Eosinophils % (Manual) Platelet Estimate Normal RBC Morphology PT INR APTT pO2 65 H VBG pH 7.49 H VBG pCO2 33 L VBG HCO3 26.6 VBG Total CO2 26.1 VBG O2 Sat (Calc) 96.0 H VBG Base Excess 2.2 H VBG Potassium 2.9 L Sodium 139.0 136 Chloride 109.0 H 94 L Glucose 98 Lactate 0.9 FiO2 21.0 Potassium 4.5 Carbon Dioxide 31 H Anion Gap 16 BUN 30 H Creatinine 0.8 Est GFR ( Amer) > 60 Est GFR (Non-Af Amer) > 60 Random Glucose 115 H Calcium 9.0 Phosphorus Magnesium Total Bilirubin 1.5 H AST 229 H D ALT 105 H D Alkaline Phosphatase 315 H D Total Creatine Kinase 236 H CK-MB (Mass) 4.51 H NT-Pro-B Natriuret Pep 295 Total Protein 7.0 Albumin 3.8 Globulin 3.2 Albumin/Globulin Ratio 1.2 Procalcitonin Venous Blood Potassium 2.9 L Urine Color Urine Clarity Urine pH Ur Specific [place] Urine Protein Urine Glucose (UA) Urine Ketones Urine Blood Urine Nitrate Urine Bilirubin Urine Urobilinogen Ur Leukocyte Esterase Urine WBC (Auto) Urine RBC (Auto) Hyaline Casts Influenza Typ A,B (EIA) 04/29/18 04/29/18 04/29/18 18:22 18:42 19:38 WBC RBC Hgb Hct MCV MCH MCHC RDW Plt Count MPV Neut % (Auto) Lymph % (Auto) [place] % (Auto) Eos % (Auto) Baso % (Auto) Neut # (Auto) Lymph # (Auto) [place] # (Auto) Eos # (Auto) Baso # (Auto) Neutrophils % (Manual) Band Neutrophils % Lymphocytes % (Manual) Monocytes % (Manual) Eosinophils % (Manual) Platelet Estimate RBC Morphology PT 13.5 H INR 1.2 APTT 39 H pO2 VBG pH VBG pCO2 VBG HCO3 VBG Total CO2 VBG O2 Sat (Calc) VBG Base Excess VBG Potassium Sodium Chloride Glucose Lactate FiO2 Potassium Carbon Dioxide Anion Gap BUN Creatinine Est GFR ( Amer) Est GFR (Non-Af Amer) Random Glucose Calcium Phosphorus 2.8 Magnesium 1.7 Total Bilirubin AST ALT Alkaline Phosphatase Total Creatine Kinase CK-MB (Mass) NT-Pro-B Natriuret Pep Total Protein Albumin Globulin Albumin/Globulin Ratio Procalcitonin Venous Blood Potassium Urine Color Yellow Urine Clarity Clear Urine pH 6.0 Ur Specific [place] 1.016 Urine Protein 1+ H Urine Glucose (UA) Normal Urine Ketones Negative Urine Blood 1+ H Urine Nitrate Negative Urine Bilirubin Negative Urine Urobilinogen Normal Ur Leukocyte Esterase Neg Urine WBC (Auto) 1 Urine RBC (Auto) 6 H Hyaline Casts 0-2 Influenza Typ A,B (EIA) 04/29/18 04/30/18 04/30/18 19:40 01:56 07:33 WBC 16.3 H RBC 3.77 L Hgb 11.1 L Hct 32.8 L MCV 86.8 MCH 29.4 MCHC 33.8 RDW 14.2 Plt Count 186 MPV 8.5 Neut % (Auto) 86.5 H Lymph % (Auto) 6.1 L [place] % (Auto) 6.3 Eos % (Auto) 0.6 Baso % (Auto) 0.5 Neut # (Auto) 14.1 H Lymph # (Auto) 1.0 [place] # (Auto) 1.0 H Eos # (Auto) 0.1 Baso # (Auto) 0.1 Neutrophils % (Manual) 88 H Band Neutrophils % 1 Lymphocytes % (Manual) 5 L Monocytes % (Manual) 5 Eosinophils % (Manual) 1 Platelet Estimate Normal RBC Morphology Normal PT INR APTT pO2 49 VBG pH 7.47 H VBG pCO2 36 L VBG HCO3 26.7 VBG Total CO2 27.3 VBG O2 Sat (Calc) 88.1 H VBG Base Excess 2.7 H VBG Potassium 2.8 L Sodium 140.0 Chloride 107.0 Glucose 95 Lactate 1.1 FiO2 21.0 Potassium Carbon Dioxide Anion Gap BUN Creatinine Est GFR ( Amer) Est GFR (Non-Af Amer) Random Glucose Calcium Phosphorus Magnesium Total Bilirubin AST ALT Alkaline Phosphatase Total Creatine Kinase CK-MB (Mass) NT-Pro-B Natriuret Pep Total Protein Albumin Globulin Albumin/Globulin Ratio Procalcitonin 0.47 Venous Blood Potassium 2.8 L Urine Color Urine Clarity Urine pH Ur Specific [place] Urine Protein Urine Glucose (UA) Urine Ketones Urine Blood Urine Nitrate Urine Bilirubin Urine Urobilinogen Ur Leukocyte Esterase Urine WBC (Auto) Urine RBC (Auto) Hyaline Casts Influenza Typ A,B (EIA) 04/30/18 04/30/18 07:33 13:31 WBC RBC Hgb Hct MCV MCH MCHC RDW Plt Count MPV Neut % (Auto) Lymph % (Auto) [place] % (Auto) Eos % (Auto) Baso % (Auto) Neut # (Auto) Lymph # (Auto) [place] # (Auto) Eos # (Auto) Baso # (Auto) Neutrophils % (Manual) Band Neutrophils % Lymphocytes % (Manual) Monocytes % (Manual) Eosinophils % (Manual) Platelet Estimate RBC Morphology PT INR APTT pO2 VBG pH VBG pCO2 VBG HCO3 VBG Total CO2 VBG O2 Sat (Calc) VBG Base Excess VBG Potassium Sodium 135 Chloride 98 Glucose Lactate FiO2 Potassium 3.8 Carbon Dioxide 29 Anion Gap 11 BUN 19 Creatinine 0.8 Est GFR ( Amer) > 60 Est GFR (Non-Af Amer) > 60 Random Glucose 116 H Calcium 8.5 L Phosphorus Magnesium Total Bilirubin 1.1 AST 106 H D ALT 67 Alkaline Phosphatase 238 H D Total Creatine Kinase CK-MB (Mass) NT-Pro-B Natriuret Pep Total Protein 5.8 L Albumin 3.0 L D Globulin 2.8 Albumin/Globulin Ratio 1.1 Procalcitonin Venous Blood Potassium Urine Color Urine Clarity Urine pH Ur Specific [place] Urine Protein Urine Glucose (UA) Urine Ketones Urine Blood Urine Nitrate Urine Bilirubin Urine Urobilinogen Ur Leukocyte Esterase Urine WBC (Auto) Urine RBC (Auto) Hyaline Casts Influenza Typ A,B (EIA) Negative for flu a/b Assessment & Plan (1) Diarrhea Assessment and Plan: Patient denies having diarrhea at this time. Will check stool for C+S, C diff, occult blood, leukocytes, calprotectin. Doubt exacerbation of colitis. Status: Acute (2) Liver enzyme elevation Assessment and Plan: Elevated liver enzymes were noted on admission. These are already improving. Possible etiologies include sepsis, drug-induced, retained CBD stone. Will repeat enzymes, check hepatitis serology and ultrasound. Status: Acute
[2018-04-30] MEDS: Lactobacillus Acidophilus 500 MU Cap PO SCH (17:59)
[2018-04-30 18:00] LABS: LEGIONELLA AG URINE NEGATIVE (NEGATIVE)
--- NOTE | 2018-04-30 18:21 | CP.PCM.CON ---
History of Present Illness - History of Present Illness History of Present Illness: 87 year old man admitted with pneumonia. ID consulted for antibiotic management He denies any recent travel or ill contacts No hemoptysis Patient was admitted 04/29/18 with weakness, diarrhea, urinary retentin and hematuria. Evaluation in the ER showed leukocytosis, WBC 19,200, and RML and RLL infiltrate on CT scan. He mentioned diarrhea to the ER physicians but has not had a bowel movement since he was admitted PMH + ulcerative colitis, 25 years, A Review of Systems - Review of Systems All systems: reviewed and no additional remarkable complaints except - Constitutional Constitutional: As Per HPI - EENT Eyes: absent: As Per HPI, Blind Spots, Blurred Vision, Change in Vision, Decreased Night Vision, Diplopia, Discharge, Dry Eye, Exophthalmos, Floaters, Irritation, Itchy Eyes, Loss of Peripheral Vision, Pain, Photophobia, Requires Corrective Lenses, Sees Flashes, Spots in Vision, Tunnel Vision, Other Visual Disturbances, Loss of Vision, Other Ears: absent: As Per HPI, Decreased Hearing, Ear Discharge, Ear Pain, Tinnitus, Abnormal Hearing, Disequilibrium, Dizziness, Other Nose/Mouth/Throat: absent: As Per HPI, Epistaxis, Nasal Congestion, Nasal Discharge, Nasal Obstruction, Nasal Trauma, Nose Pain, Post Nasal Drip, Sinus Pain, Sinus Pressure, Bleeding Gums, Change in Voice, Dental Pain, Dry Mouth, Dysphagia, Halitosis, Hoarsness, Lip Swelling, Mouth Lesions, Mouth Pain, Odynophagia, Sore Throat, Throat Swelling, Tongue Swelling, Facial Pain, Neck Pain, Neck Mass, Other - Cardiovascular Cardiovascular: absent: As Per HPI, Acrocyanosis, Chest Pain, Chest Pain at Rest , Chest Pain with Activity, Claudication, Diaphoresis, Dyspnea, Dyspnea on Exertion, Edema, Irregular Heart Rhythm, Pain Radiating to Arm/Neck/Jaw, Leg Edema, Leg Ulcers, Lightheadedness, Orthopnea, Palpitations, Paroxysmal Nocturnal Dyspnea, Pedal Edema, Radiating Pain, Rapid Heart Rate, Slow Heart Rate, Syncope, Other - Respiratory Respiratory: As Per HPI - Gastrointestinal Gastrointestinal: As Per HPI - Genitourinary Genitourinary: absent: As Per HPI, Change in Urinary Stream, Difficulty Urinating, Dysuria, Flank Pain, Hematuria, Pyuria, Nocturia, Urinary Incontinence, Urinary Frequency, Urinary Hesitance, Urinary Urgency, Voiding Freq/Small Amts, Freq UTI, Hx Renal/Bladder Calculi, Hx /Renal Surgery, Bladder Distension, Other - Musculoskeletal Musculoskeletal: absent: As Per HPI, Abnormal Gait, Arthralgias, Atrophy, Back Pain, Deformity, Joint Swelling, Limited Range of Motion, Loss of Height, Muscle Cramps, Muscle Weakness, Myalgias, Neck Pain, Numbness, Radiating Pain into Limb, Stiffness, Tingling, Other - Integumentary Integumentary: absent: As Per HPI, Acne, Alopecia, Bleeding Lesions, Change in Hair, Change in Nails, Change in Pigmentation, Changing Lesions, Dry Skin, Erythema, Furuncle, Hirsutism, Lesions, New Lesions, Non-Healing Lesions, Photosensitivity, Pruritus, Rash, Skin Pain, Skin Ulcer, Sores, Striae, Swelling , Unusual Bruising, Wounds, Jaundice, Other - Neurological Neurological: absent: As Per HPI, Abnormal Gait, Abnormal Hearing, Abnormal Movements, Abnormal Speech, Behavioral Changes, Burning Sensations, Confusion, Convulsions, Disequilibrium, Dizziness, Numbness, Focal Weakness, Frequent Falls , Headaches, Lack of Coordination, Loss of Vision, Memory Loss, Paresthesias, Radicular Pain, Restless Legs, Sensory Deficit, Syncope, Tingling, Tremor, Vertigo, Weakness, Other Visual Disturbances, Other - Psychiatric Psychiatric: absent: As Per HPI, Abnormal Sleep Pattern, Anhedonia, Anxiety, Auditory Hallucinations, Behavioral Changes, Change in Appetite, Change in Libido, Confusion, Depression, Difficulty Concentrating, Hallucinations, Homicidal Ideation, Hopelessness, Irritability, Memory Loss, Mood Swings, Panic Attacks, Paranoia, Suicidal Ideation, Visual Hallucinations, Tactile Hallucinations, Other - Endocrine Endocrine: absent: As Per HPI, Change in Body Appearance, Change in Libido, Cold Intolorance, Deepening of Voice, Excessive Sweating, Fatigue, Flushing, Heat Intolorance, Increase in Ring/Shoe/Hat Size, Palpitations, Polydipsia, Polyphagia, Polyuria, Other - Hematologic/Lymphatic Hematologic: absent: As Per HPI, Easy Bleeding, Easy Bruising, Lymphadenopathy, Other Past Patient History - Past Medical History & Family History Past Medical History?: Yes - Past Social History Smoking Status: Never Smoked - CARDIAC Hx Hypertension: Yes - PULMONARY Hx Respiratory Disorders: No - NEUROLOGICAL Hx Neurological Disorder: No - HEENT Hx HEENT Problems: No - RENAL Hx Chronic Kidney Disease: No - ENDOCRINE/METABOLIC Hx Endocrine Disorders: No - HEMATOLOGICAL/ONCOLOGICAL Hx Blood Disorders: No - INTEGUMENTARY Hx Dermatological Problems: No - MUSCULOSKELETAL/RHEUMATOLOGICAL Hx Falls: Yes - GASTROINTESTINAL Hx Gastrointestinal Disorders: Yes Hx Colitis: Yes - GENITOURINARY/GYNECOLOGICAL Hx Genitourinary Disorders: No - PSYCHIATRIC Hx Substance Use: No - SURGICAL HISTORY Hx Cholecystectomy: Yes - ANESTHESIA Hx Anesthesia: Yes Hx Anesthesia Reactions: No Meds Allergies/Adverse Reactions: Allergies Allergy/AdvReac Type Severity Reaction Status Date / Time No Known Allergies Allergy Verified 04/29/18 15:55 - Medications Medications: Current Medications Aspirin (Aspirin Chewable) 81 mg PO DAILY [facility] Heparin Sodium (Porcine) (Heparin) 5,000 units SC Q12 [facility] Last Admin: 04/30/18 10:46 Dose: 5,000 units Sodium Chloride (Sodium Chloride 0.9%) 1,000 mls @ 75 mls/hr IV .[id number] [facility] Last Admin: 04/30/18 14:44 Dose: 75 mls/hr Azithromycin 500 mg/ Sodium (Chloride) 250 mls @ 250 mls/hr IVPB DAILY [facility] PRN Reason: Protocol Last Admin: 04/30/18 12:06 Dose: 250 mls/hr Ceftriaxone Sodium 1 gm/ (Sodium Chloride) 100 mls @ 100 mls/hr IVPB DAILY [facility] PRN Reason: Protocol Last Admin: 04/30/18 10:45 Dose: 100 mls/hr Lactobacillus Acidophilus (Bacid Acidophilus) 1 cap PO BID [facility] Last Admin: 04/30/18 17:59 Dose: 1 cap Metoprolol Succinate (Toprol Xl) 25 mg PO DAILY [facility] Last Admin: 04/30/18 10:46 Dose: 25 mg Rosuvastatin Calcium (Crestor) 5 mg PO [facility] Physical Exam - Constitutional Appears: Non-toxic, Confused, Cachectic, Chronically Ill - Head Exam Head Exam: ATRAUMATIC, NORMAL INSPECTION, NORMOCEPHALIC - Eye Exam Eye Exam: absent: Scleral icterus Pupil Exam: NORMAL ACCOMODATION - ENT Exam ENT Exam: Mucous Membranes Dry, Normal External Ear Exam, Normal Oropharynx - Neck Exam Neck exam: Negative for: Lymphadenopathy - Respiratory Exam Respiratory Exam: Decreased Breath Sounds, Rhonchi - Cardiovascular Exam Cardiovascular Exam: REGULAR RHYTHM, +S1, +S2 - GI/Abdominal Exam GI & Abdominal Exam: Diminished Bowel Sounds, Soft. absent: Tenderness - Rectal Exam Rectal Exam: Deferred - Exam Exam: NORMAL INSPECTION - Extremities Exam Extremities exam: Positive for: pedal pulses present. Negative for: calf tenderness, pedal edema, tenderness - Back Exam Back exam: absent: CVA tenderness (L), CVA tenderness (R), paraspinal tenderness - Neurological Exam Neurological exam: Alert, Altered, CN II-XII Intact, Reflexes Normal - Psychiatric Exam Psychiatric exam: Depressed - Skin Skin Exam: Dry, Intact Results - Vital Signs Recent Vital Signs: Last Vital Signs Temp 98.9 F 04/30/18 16:15 Pulse 84 04/30/18 16:15 Resp 20 04/30/18 16:15 BP 98/59 L 04/30/18 16:15 Pulse Ox 100 04/30/18 16:15 - Labs Result Diagrams: 04/30/18 07:33 04/30/18 07:33 Labs: Laboratory Results - last 24 hr 04/29/18 04/29/18 04/29/18 10:11 18:22 18:22 WBC 19.2 H RBC 4.25 L Hgb 12.4 D Hct 36.8 MCV 86.6 MCH 29.1 MCHC 33.7 RDW 14.3 Plt Count 214 MPV 8.7 Neut % (Auto) 84.3 H Lymph % (Auto) 7.9 L [place] % (Auto) 6.7 Eos % (Auto) 0.7 Baso % (Auto) 0.4 Neut # (Auto) 16.2 H Lymph # (Auto) 1.5 [place] # (Auto) 1.3 H Eos # (Auto) 0.1 Baso # (Auto) 0.1 Neutrophils % (Manual) 81 H Band Neutrophils % Lymphocytes % (Manual) 13 L Monocytes % (Manual) 6 Eosinophils % (Manual) Platelet Estimate Normal RBC Morphology PT INR APTT pO2 65 H VBG pH 7.49 H VBG pCO2 33 L VBG HCO3 26.6 VBG Total CO2 26.1 VBG O2 Sat (Calc) 96.0 H VBG Base Excess 2.2 H VBG Potassium 2.9 L Sodium 139.0 136 Chloride 109.0 H 94 L Glucose 98 Lactate 0.9 FiO2 21.0 Potassium 4.5 Carbon Dioxide 31 H Anion Gap 16 BUN 30 H Creatinine 0.8 Est GFR ( Amer) > 60 Est GFR (Non-Af Amer) > 60 Random Glucose 115 H Calcium 9.0 Phosphorus Magnesium Total Bilirubin 1.5 H AST 229 H D ALT 105 H D Alkaline Phosphatase 315 H D Total Creatine Kinase 236 H CK-MB (Mass) 4.51 H NT-Pro-B Natriuret Pep 295 Total Protein 7.0 Albumin 3.8 Globulin 3.2 Albumin/Globulin Ratio 1.2 Procalcitonin Venous Blood Potassium 2.9 L Urine Color Urine Clarity Urine pH Ur Specific [place] Urine Protein Urine Glucose (UA) Urine Ketones Urine Blood Urine Nitrate Urine Bilirubin Urine Urobilinogen Ur Leukocyte Esterase Urine WBC (Auto) Urine RBC (Auto) Hyaline Casts Influenza Typ A,B (EIA) Ur L.pneumophila Ag 04/29/18 04/29/18 04/29/18 18:22 18:42 19:38 WBC RBC Hgb Hct MCV MCH MCHC RDW Plt Count MPV Neut % (Auto) Lymph % (Auto) [place] % (Auto) Eos % (Auto) Baso % (Auto) Neut # (Auto) Lymph # (Auto) [place] # (Auto) Eos # (Auto) Baso # (Auto) Neutrophils % (Manual) Band Neutrophils % Lymphocytes % (Manual) Monocytes % (Manual) Eosinophils % (Manual) Platelet Estimate RBC Morphology PT 13.5 H INR 1.2 APTT 39 H pO2 VBG pH VBG pCO2 VBG HCO3 VBG Total CO2 VBG O2 Sat (Calc) VBG Base Excess VBG Potassium Sodium Chloride Glucose Lactate FiO2 Potassium Carbon Dioxide Anion Gap BUN Creatinine Est GFR ( Amer) Est GFR (Non-Af Amer) Random Glucose Calcium Phosphorus 2.8 Magnesium 1.7 Total Bilirubin AST ALT Alkaline Phosphatase Total Creatine Kinase CK-MB (Mass) NT-Pro-B Natriuret Pep Total Protein Albumin Globulin Albumin/Globulin Ratio Procalcitonin Venous Blood Potassium Urine Color Yellow Urine Clarity Clear Urine pH 6.0 Ur Specific [place] 1.016 Urine Protein 1+ H Urine Glucose (UA) Normal Urine Ketones Negative Urine Blood 1+ H Urine Nitrate Negative Urine Bilirubin Negative Urine Urobilinogen Normal Ur Leukocyte Esterase Neg Urine WBC (Auto) 1 Urine RBC (Auto) 6 H Hyaline Casts 0-2 Influenza Typ A,B (EIA) Ur L.pneumophila Ag 04/29/18 04/30/18 04/30/18 19:40 01:56 07:33 WBC 16.3 H RBC 3.77 L Hgb 11.1 L Hct 32.8 L MCV 86.8 MCH 29.4 MCHC 33.8 RDW 14.2 Plt Count 186 MPV 8.5 Neut % (Auto) 86.5 H Lymph % (Auto) 6.1 L [place] % (Auto) 6.3 Eos % (Auto) 0.6 Baso % (Auto) 0.5 Neut # (Auto) 14.1 H Lymph # (Auto) 1.0 [place] # (Auto) 1.0 H Eos # (Auto) 0.1 Baso # (Auto) 0.1 Neutrophils % (Manual) 88 H Band Neutrophils % 1 Lymphocytes % (Manual) 5 L Monocytes % (Manual) 5 Eosinophils % (Manual) 1 Platelet Estimate Normal RBC Morphology Normal PT INR APTT pO2 49 VBG pH 7.47 H VBG pCO2 36 L VBG HCO3 26.7 VBG Total CO2 27.3 VBG O2 Sat (Calc) 88.1 H VBG Base Excess 2.7 H VBG Potassium 2.8 L Sodium 140.0 Chloride 107.0 Glucose 95 Lactate 1.1 FiO2 21.0 Potassium Carbon Dioxide Anion Gap BUN Creatinine Est GFR ( Amer) Est GFR (Non-Af Amer) Random Glucose Calcium Phosphorus Magnesium Total Bilirubin AST ALT Alkaline Phosphatase Total Creatine Kinase CK-MB (Mass) NT-Pro-B Natriuret Pep Total Protein Albumin Globulin Albumin/Globulin Ratio Procalcitonin 0.47 Venous Blood Potassium 2.8 L Urine Color Urine Clarity Urine pH Ur Specific [place] Urine Protein Urine Glucose (UA) Urine Ketones Urine Blood Urine Nitrate Urine Bilirubin Urine Urobilinogen Ur Leukocyte Esterase Urine WBC (Auto) Urine RBC (Auto) Hyaline Casts Influenza Typ A,B (EIA) Ur L.pneumophila Ag 04/30/18 04/30/18 04/30/18 07:33 13:31 15:55 WBC RBC Hgb Hct MCV MCH MCHC RDW Plt Count MPV Neut % (Auto) Lymph % (Auto) [place] % (Auto) Eos % (Auto) Baso % (Auto) Neut # (Auto) Lymph # (Auto) [place] # (Auto) Eos # (Auto) Baso # (Auto) Neutrophils % (Manual) Band Neutrophils % Lymphocytes % (Manual) Monocytes % (Manual) Eosinophils % (Manual) Platelet Estimate RBC Morphology PT INR APTT pO2 VBG pH VBG pCO2 VBG HCO3 VBG Total CO2 VBG O2 Sat (Calc) VBG Base Excess VBG Potassium Sodium 135 Chloride 98 Glucose Lactate FiO2 Potassium 3.8 Carbon Dioxide 29 Anion Gap 11 BUN 19 Creatinine 0.8 Est GFR ( Amer) > 60 Est GFR (Non-Af Amer) > 60 Random Glucose 116 H Calcium 8.5 L Phosphorus Magnesium Total Bilirubin 1.1 AST 106 H D ALT 67 Alkaline Phosphatase 238 H D Total Creatine Kinase CK-MB (Mass) NT-Pro-B Natriuret Pep Total Protein 5.8 L Albumin 3.0 L D Globulin 2.8 Albumin/Globulin Ratio 1.1 Procalcitonin Venous Blood Potassium Urine Color Urine Clarity Urine pH Ur Specific [place] Urine Protein Urine Glucose (UA) Urine Ketones Urine Blood Urine Nitrate Urine Bilirubin Urine Urobilinogen Ur Leukocyte Esterase Urine WBC (Auto) Urine RBC (Auto) Hyaline Casts Influenza Typ A,B (EIA) Negative for flu a/b Ur L.pneumophila Ag Negative Assessment & Plan (1) Diarrhea Status: Acute (2) Liver enzyme elevation Status: Acute (3) Pneumonia Status: Acute (4) Hypertension Status: Acute - Assessment and Plan (Free Text) Assessment: CAP r/o Legionella Mycoplasma Influenza Viral agree with present RX await cultures, serologies
[2018-04-30 21:48] LABS: N MENINGITIS ACY/W135 NEGATIVE (NEGATIVE); N MENINGITIS B/ECOLI K1 NEGATIVE (NEGATIVE); STREP PNEUMONIAE NEGATIVE (NEGATIVE); STREPTOCOCCUS B NEGATIVE (NEGATIVE)
[2018-04-30 22:28] LABS: MYCOPLASMA PNEUMONIAE IGM NEGATIVE (NEGATIVE)
[2018-05-01] MEDS: Sodium Chloride 0.9% 1,000 ML IV SCH ×4 (04:29→21:23)
[2018-05-01 07:34] LABS: BASO # 0.1 K/uL (0.0-0.2); BASO % 0.3 % (0.0-2.0); EOS # 0.2 K/uL (0.0-0.7); EOS % 1.2 % (0.0-4.0); HEMOGLOBIN 11.9 g/dL (12.0-18.0); LYMPH # 1.2 K/uL (1.0-4.3); LYMPH % 7.7 % (20.0-40.0); MEAN CELL VOLUME 87.2 fL (80.0-94.0); MEAN CORPUSCULAR HEMOGLOBIN 29.3 pg (27.0-31.0); MEAN CORPUSCULAR HGB CONC 33.6 g/dL (33.0-37.0); MEAN PLATELET VOLUME 8.8 fL (7.2-11.7); MONO # 0.8 K/uL (0.0-0.8); MONO % 4.9 % (0.0-10.0); NEUT # 13.5 K/uL (1.8-7.0); NEUT % 85.9 % (50.0-75.0); PLATELET COUNT 228 K/uL (130-400); RBC 4.06 Mil/uL (4.40-5.90); RED CELL DISTRIBUTION WIDTH 14.2 % (11.5-14.5); WHITE BLOOD COUNT 15.7 K/uL (4.8-10.8)
[2018-05-01 08:13] LABS: GAMMA GLUTAMYL TRANSPEPTIDASE 177 U/L (8-78)
[2018-05-01 08:14] LABS: ALT/SGPT 78 U/L (21-72); AST/SGOT 97 U/L (17-59); BLOOD UREA NITROGEN 21 mg/dL (9-20); CALCIUM 8.5 mg/dl (8.6-10.4); GFR AFRICAN-AMERICAN > 60; GFR NON-AFRICAN AMERICAN > 60; HDL CHOLESTEROL 15 mg/dL (30-70)
[2018-05-01 08:25] LABS: LDL CHOLESTEROL 41 mg/dL (0-129)
[2018-05-01 08:40] LABS: HEPATITIS B SURFACE AG Negative (NEGATIVE)
[2018-05-01 08:43] LABS: HEPATITIS B CORE AB NEGATIVE (NEGATIVE)
[2018-05-01 08:55] LABS: HEPATITIS C ANTIBODY NEGATIVE (NEGATIVE)
[2018-05-01 09:14] LABS: BANDS 1 % (0-2); EOSINOPHIL 1 % (0-4); LYMPHOCYTE 7 % (20-40); MONOCYTE 8 % (0-10); NEUTROPHIL 83 % (50-75); PLATELET ESTIMATE NORMAL (NORMAL); TOTAL CELLS COUNTED 100
[2018-05-01 09:15] LABS: ANISOCYTOSIS SLIGHT; LARGE PLATELETS PRESENT; POLYCHROMIC SLIGHT
[2018-05-01] MEDS: Azithromycin 500 MG in Sodium Chloride 0.9% 250 ML IVPB SCH (09:30)
[2018-05-01] MEDS: Metoprolol Succinate 25 mg XL Tab PO SCH (09:31)
[2018-05-01] MEDS: Lactobacillus Acidophilus 500 MU Cap PO SCH ×2 (09:31→17:50)
--- NOTE | 2018-05-01 11:15 | CP.PCM.PN ---
Subjective - Date & Time of Evaluation Date of Evaluation: 05/01/18 Time of Evaluation: 11:12 - Subjective Subjective: COVERING DR BRANDON Patient denies any pain or diarrhea. Hepatitis Serologies are all negative Lft's mildly improved, Alk Phos slightly higher. Sono pending but not yet read Objective - Vital Signs/Intake and Output Vital Signs (last 24 hours): Temp Pulse Resp BP Pulse Ox 99 F 82 18 120/71 94 L 05/01/18 07:49 05/01/18 07:49 05/01/18 07:49 05/01/18 07:49 05/01/18 07:49 Intake and Output: 05/01/18 05/01/18 06:59 18:59 Intake Total 840 Balance 840 - Medications Medications: Current Medications Aspirin (Aspirin Chewable) 81 mg PO DAILY [facility] Last Admin: 05/01/18 09:31 Dose: 81 mg Heparin Sodium (Porcine) (Heparin) 5,000 units SC Q12 [facility] Last Admin: 05/01/18 09:31 Dose: 5,000 units Sodium Chloride (Sodium Chloride 0.9%) 1,000 mls @ 75 mls/hr IV .[id number] [facility] Last Admin: 05/01/18 05:05 Dose: 75 mls/hr Azithromycin 500 mg/ Sodium (Chloride) 250 mls @ 250 mls/hr IVPB DAILY [facility] PRN Reason: Protocol Last Admin: 05/01/18 09:30 Dose: 250 mls/hr Ceftriaxone Sodium 1 gm/ (Sodium Chloride) 100 mls @ 100 mls/hr IVPB DAILY [facility] PRN Reason: Protocol Last Admin: 05/01/18 09:30 Dose: 100 mls/hr Lactobacillus Acidophilus (Bacid Acidophilus) 1 cap PO BID [facility] Last Admin: 05/01/18 09:31 Dose: 1 cap Metoprolol Succinate (Toprol Xl) 25 mg PO DAILY [facility] Last Admin: 05/01/18 09:31 Dose: 25 mg Rosuvastatin Calcium (Crestor) 5 mg PO HS [facility] Last Admin: 04/30/18 21:52 Dose: 5 mg - Labs Labs: 05/01/18 07:19 05/01/18 07:19 PT 13.5 SECONDS (9.7-12.2) H 04/29/18 18:22 INR 1.2 04/29/18 18:22 APTT 39 SECONDS (21-34) H 04/29/18 18:22 - Constitutional Appears: No Acute Distress - Head Exam Head Exam: ATRAUMATIC, NORMOCEPHALIC - Respiratory Exam Respiratory Exam: NORMAL BREATHING PATTERN - Cardiovascular Exam Cardiovascular Exam: REGULAR RHYTHM, +S1 - GI/Abdominal Exam GI & Abdominal Exam: Soft, Normal Bowel Sounds. absent: Distended, Guarding, Tenderness, Mass, Organomegaly, Rebound - Extremities Exam Extremities Exam: Normal Inspection Assessment and Plan (1) Abnormal alkaline phosphatase test Assessment & Plan: Mild elevation may be drug induced, related to NAFLD. r/o bile duct lesion or stones. Sono pending Monitor LFTs. Alk Phos isoenzymes Status: Acute (2) Diarrhea Assessment & Plan: Patient denies diarrhea since admission. Doubt IBD flair Status: Acute (3) Liver enzyme elevation Assessment & Plan: Monitor LFT's Work up in progress. Status: Acute
--- NOTE | 2018-05-01 12:48 | CARD ---
APPROVED REPORT Date of service: 04/29/2018 EKG Measurement Heart [id number] <Conclusion> Normal sinus rhythm Normal ECG
[2018-05-01] MEDS: Potassium Chloride 20 mEq ER Tab PO SCH (12:57)
--- NOTE | 2018-05-01 15:04 | CP.PCM.PN ---
Addendum entered and electronically signed by Mignon Kwong DO 05/01/18 21 :00: Of note- On Respiratory exam- Crackles noted in right lung base Skin - Hip abrasion, no bruisign or ulceration noted Original Note: <Mignon Kwong - Last Filed: 05/01/18 20:59> Subjective - Date & Time of Evaluation Date of Evaluation: 05/01/18 Time of Evaluation: 16:20 - Subjective Subjective: PGY 3 Med Note- Dr. Khurram Faust's service Patient seen and examined in no acute distress. Son present bedside. Patient with minimal coughing symptoms per son. Patient denied abdominal pain, palpitations, chest pain or shortness of breath at this time. Objective - Vital Signs/Intake and Output Vital Signs (last 24 hours): Temp Pulse Resp BP Pulse Ox 99 F 82 18 120/71 94 L 05/01/18 07:49 05/01/18 07:49 05/01/18 07:49 05/01/18 07:49 05/01/18 07:49 Intake and Output: 05/01/18 05/01/18 06:59 18:59 Intake Total 840 830 Balance 840 830 - Medications Medications: Current Medications Aspirin (Aspirin Chewable) 81 mg PO DAILY [facility] Last Admin: 05/01/18 09:31 Dose: 81 mg Heparin Sodium (Porcine) (Heparin) 5,000 units SC Q12 [facility] Last Admin: 05/01/18 09:31 Dose: 5,000 units Sodium Chloride (Sodium Chloride 0.9%) 1,000 mls @ 75 mls/hr IV .[id number] [facility] Last Admin: 05/01/18 05:05 Dose: 75 mls/hr Azithromycin 500 mg/ Sodium (Chloride) 250 mls @ 250 mls/hr IVPB DAILY [facility] PRN Reason: Protocol Last Admin: 05/01/18 09:30 Dose: 250 mls/hr Ceftriaxone Sodium 1 gm/ (Sodium Chloride) 100 mls @ 100 mls/hr IVPB DAILY [facility] PRN Reason: Protocol Last Admin: 05/01/18 09:30 Dose: 100 mls/hr Lactobacillus Acidophilus (Bacid Acidophilus) 1 cap PO BID [facility] Last Admin: 05/01/18 09:31 Dose: 1 cap Metoprolol Succinate (Toprol Xl) 25 mg PO DAILY [facility] Last Admin: 05/01/18 09:31 Dose: 25 mg Potassium Chloride (K-Dur 20 Meq Er Tab) 20 meq PO DAILY [facility] Last Admin: 05/01/18 12:57 Dose: 20 meq Rosuvastatin Calcium (Crestor) 5 mg PO HS [facility] Last Admin: 04/30/18 21:52 Dose: 5 mg - Labs Labs: 05/01/18 07:19 05/01/18 07:19 PT 13.5 SECONDS (9.7-12.2) H 04/29/18 18:22 INR 1.2 04/29/18 18:22 APTT 39 SECONDS (21-34) H 04/29/18 18:22 - Constitutional Appears: Non-toxic, No Acute Distress - Head Exam Head Exam: ATRAUMATIC, NORMAL INSPECTION - Eye Exam Eye Exam: EOMI, Normal appearance, PERRL Pupil Exam: NORMAL ACCOMODATION - ENT Exam ENT Exam: Mucous Membranes Moist - Neck Exam Neck Exam: Full ROM - Respiratory Exam Respiratory Exam: Decreased Breath Sounds, NORMAL BREATHING PATTERN - Cardiovascular Exam Cardiovascular Exam: +S1, +S2 - GI/Abdominal Exam GI & Abdominal Exam: Soft, Normal Bowel Sounds. absent: Tenderness - Extremities Exam Extremities Exam: Full ROM - Back Exam Back Exam: Full ROM - Neurological Exam Neurological Exam: Alert, Awake, Oriented x3 - Psychiatric Exam Psychiatric exam: Normal Affect, Normal Mood - Skin Skin Exam: Dry, Intact Assessment and Plan - Assessment and Plan (Free Text) Assessment: Pneumonia - Afebrile - Leukocytosis trending down - Chest CT confirm consolidation changes in right lower lobe pneumonia. Refer to complete report - Strep pneumo, mycoplasma pneumo, legionella all negative - Blood cultures- no growth - Procalcitonin within normal limits - Azithromycin 500mg IV daily, started 04/30/18 - Rocephin 1gm IV daily, started 04/30/18 - On Bacid started, started 04/30/18 - Continue to monitor Transaminitis - LFTs trending down. Avoid hepatotoxic agents - GI recommendations . F/U abdominal ultrasound imaging - Abdomen CT: Inferior margin of the unenhanced liver incompletely visualized. The visualized portions of the liver unremarkable without masses collections or calcifications. Cholecystectomy. Refer to complete report - Continue to monitor labs Hypertension - Continue home medication: Metoprolol 25mg PO daily - Heart healthy diet - Patient's cardiology history is unclear. Cardio Dr. Bliss consulted. Appreciate recs. Fall - Patient has history of CVA with residual left sided weakness - Patient typically uses walker at home - Head CT shows mild to moderate chronic periventricular white matter ischemic changes multiple more discrete deep and subcortical white matter as well basal nuclei and possibly brainstem lacunar type infarcts. Moderate to significant generalized volume loss. History of ulcerative colitis - GI consulted. Per notes, doubtful of IBD flair in light of no current complaints of diarrhea -F/U Prophylaxis - DVT: SCDs, heparin 5000u SC Q12h - GI: not indicated - Lactobacillus acidophilus 1 cap PO BID <Micky Faust - Last Filed: 05/02/18 22:52> Objective - Vital Signs/Intake and Output Vital Signs (last 24 hours): Temp Pulse Resp BP Pulse Ox 98 F 86 20 150/72 96 05/02/18 15:47 05/02/18 15:47 05/02/18 15:47 05/02/18 15:47 05/02/18 15:47 Intake and Output: 05/02/18 05/03/18 18:59 06:59 Intake Total 650 Balance 650 - Medications Medications: Current Medications Aspirin (Aspirin Chewable) 81 mg PO DAILY [facility] Last Admin: 05/02/18 09:55 Dose: 81 mg Heparin Sodium (Porcine) (Heparin) 5,000 units SC Q12 [facility] Last Admin: 05/02/18 22:04 Dose: 5,000 units Azithromycin 500 mg/ Sodium (Chloride) 250 mls @ 250 mls/hr IVPB DAILY [facility] PRN Reason: Protocol Last Admin: 05/02/18 10:54 Dose: 250 mls/hr Piperacillin Sod/Tazobactam Sod (Zosyn 3.375 Gm Iv Premix) 3.375 gm in 50 mls @ 100 mls/hr IVPB Q8H [facility] PRN Reason: Protocol Last Admin: 05/02/18 22:04 Dose: 100 mls/hr Lactobacillus Acidophilus (Bacid Acidophilus) 1 cap PO BID [facility] Last Admin: 05/02/18 17:52 Dose: 1 cap Metoprolol Succinate (Toprol Xl) 25 mg PO DAILY [facility] Last Admin: 05/02/18 09:55 Dose: 25 mg Potassium Chloride (K-Dur 20 Meq Er Tab) 20 meq PO DAILY [facility] Last Admin: 05/02/18 09:55 Dose: 20 meq Rosuvastatin Calcium (Crestor) 5 mg PO HS [facility] Last Admin: 05/01/18 21:28 Dose: 5 mg - Labs Labs: 05/02/18 07:27 05/02/18 07:27 PT 13.5 SECONDS (9.7-12.2) H 04/29/18 18:22 INR 1.2 04/29/18 18:22 APTT 39 SECONDS (21-34) H 04/29/18 18:22 Attending/Attestation - Attestation I have personally seen and examined this patient.: Yes I have fully participated in the care of the patient.: Yes I have reviewed all pertinent clinical information, including history, physical exam and plan: Yes Notes (Text): 05/02/18 22:51 This is a late entry Care of this patient was gone over in detail with resident Dr. Varghese Faust D.O.
--- NOTE | 2018-05-01 19:48 | CP.PCM.CON ---
Past Patient History - Past Medical History & Family History Past Medical History?: Yes - Past Social History Smoking Status: Never Smoked - CARDIAC Hx Hypertension: Yes - PULMONARY Hx Respiratory Disorders: No - NEUROLOGICAL Hx Neurological Disorder: No - HEENT Hx HEENT Problems: No - RENAL Hx Chronic Kidney Disease: No - ENDOCRINE/METABOLIC Hx Endocrine Disorders: No - HEMATOLOGICAL/ONCOLOGICAL Hx Blood Disorders: No - INTEGUMENTARY Hx Dermatological Problems: No - MUSCULOSKELETAL/RHEUMATOLOGICAL Hx Falls: Yes - GASTROINTESTINAL Hx Gastrointestinal Disorders: Yes Hx Colitis: Yes - GENITOURINARY/GYNECOLOGICAL Hx Genitourinary Disorders: No - PSYCHIATRIC Hx Substance Use: No - SURGICAL HISTORY Hx Cholecystectomy: Yes - ANESTHESIA Hx Anesthesia: Yes Hx Anesthesia Reactions: No Meds Allergies/Adverse Reactions: Allergies Allergy/AdvReac Type Severity Reaction Status Date / Time No Known Allergies Allergy Verified 04/29/18 15:55 - Medications Medications: Current Medications Aspirin (Aspirin Chewable) 81 mg PO DAILY [facility] Last Admin: 05/01/18 09:31 Dose: 81 mg Heparin Sodium (Porcine) (Heparin) 5,000 units SC Q12 [facility] Last Admin: 05/01/18 09:31 Dose: 5,000 units Sodium Chloride (Sodium Chloride 0.9%) 1,000 mls @ 75 mls/hr IV .[id number] [facility] Last Admin: 05/01/18 18:00 Dose: Not Given Azithromycin 500 mg/ Sodium (Chloride) 250 mls @ 250 mls/hr IVPB DAILY [facility] PRN Reason: Protocol Last Admin: 05/01/18 09:30 Dose: 250 mls/hr Ceftriaxone Sodium 1 gm/ (Sodium Chloride) 100 mls @ 100 mls/hr IVPB DAILY [facility] PRN Reason: Protocol Last Admin: 05/01/18 09:30 Dose: 100 mls/hr Lactobacillus Acidophilus (Bacid Acidophilus) 1 cap PO BID [facility] Last Admin: 05/01/18 17:50 Dose: 1 cap Metoprolol Succinate (Toprol Xl) 25 mg PO DAILY [facility] Last Admin: 05/01/18 09:31 Dose: 25 mg Potassium Chloride (K-Dur 20 Meq Er Tab) 20 meq PO DAILY [facility] Last Admin: 05/01/18 12:57 Dose: 20 meq Rosuvastatin Calcium (Crestor) 5 mg PO HS [facility] Last Admin: 04/30/18 21:52 Dose: 5 mg Results - Vital Signs Recent Vital Signs: Last Vital Signs Temp 98.7 F 05/01/18 15:00 Pulse 77 05/01/18 15:00 Resp 20 05/01/18 15:00 BP 125/66 05/01/18 15:00 Pulse Ox 97 05/01/18 15:00 - Labs Result Diagrams: 05/01/18 07:19 05/01/18 07:19 Labs: Laboratory Results - last 24 hr 04/30/18 04/30/18 05/01/18 01:56 15:55 07:19 WBC 15.7 H RBC 4.06 L Hgb 11.9 L Hct 35.4 MCV 87.2 MCH 29.3 MCHC 33.6 RDW 14.2 Plt Count 228 MPV 8.8 Neut % (Auto) 85.9 H Lymph % (Auto) 7.7 L [place] % (Auto) 4.9 Eos % (Auto) 1.2 Baso % (Auto) 0.3 Neut # (Auto) 13.5 H Lymph # (Auto) 1.2 [place] # (Auto) 0.8 Eos # (Auto) 0.2 Baso # (Auto) 0.1 Neutrophils % (Manual) 83 H Band Neutrophils % 1 Lymphocytes % (Manual) 7 L Monocytes % (Manual) 8 Eosinophils % (Manual) 1 Platelet Estimate Normal Large Platelets Present Polychromasia Slight Anisocytosis (manual) Slight Sodium Potassium Chloride Carbon Dioxide Anion Gap BUN Creatinine Est GFR ( Amer) Est GFR (Non-Af Amer) Random Glucose Calcium Phosphorus Magnesium Total Bilirubin GGT AST ALT Alkaline Phosphatase Total Protein Albumin Globulin Albumin/Globulin Ratio Triglycerides Cholesterol LDL Cholesterol Direct HDL Cholesterol Free T4 TSH 3rd Generation Hep Bs Antigen Hep Bs Antibody Hep B Core IgM Ab Hepatitis C Antibody H.influenzae Type B Ag Negative Mycoplasma pneumon IgM Negative N.meningitidis ACY/W135 Negative N.meningi B/E.coli K1 Ag Negative Group B Strep Antigen Negative S. pneumoniae Antigen Negative 05/01/18 05/01/18 05/01/18 07:19 07:19 07:19 WBC RBC Hgb Hct MCV MCH MCHC RDW Plt Count MPV Neut % (Auto) Lymph % (Auto) [place] % (Auto) Eos % (Auto) Baso % (Auto) Neut # (Auto) Lymph # (Auto) [place] # (Auto) Eos # (Auto) Baso # (Auto) Neutrophils % (Manual) Band Neutrophils % Lymphocytes % (Manual) Monocytes % (Manual) Eosinophils % (Manual) Platelet Estimate Large Platelets Polychromasia Anisocytosis (manual) Sodium 139 Potassium 3.4 L Chloride 101 Carbon Dioxide 26 Anion Gap 15 BUN 21 H Creatinine 0.8 Est GFR ( Amer) > 60 Est GFR (Non-Af Amer) > 60 Random Glucose 122 H Calcium 8.5 L Phosphorus 2.9 Magnesium 1.7 Total Bilirubin 0.9 GGT 177 H AST 97 H ALT 78 H Alkaline Phosphatase 287 H D Total Protein 6.1 L Albumin 3.0 L Globulin 3.1 Albumin/Globulin Ratio 1.0 Triglycerides 82 Cholesterol 91 LDL Cholesterol Direct 41 HDL Cholesterol 15 L Free T4 1.71 TSH 3rd Generation 0.63 Hep Bs Antigen Negative Hep Bs Antibody Hep B Core IgM Ab Negative Hepatitis C Antibody Negative H.influenzae Type B Ag Mycoplasma pneumon IgM N.meningitidis ACY/W135 N.meningi B/E.coli K1 Ag Group B Strep Antigen S. pneumoniae Antigen 05/01/18 07:19 WBC RBC Hgb Hct MCV MCH MCHC RDW Plt Count MPV Neut % (Auto) Lymph % (Auto) [place] % (Auto) Eos % (Auto) Baso % (Auto) Neut # (Auto) Lymph # (Auto) [place] # (Auto) Eos # (Auto) Baso # (Auto) Neutrophils % (Manual) Band Neutrophils % Lymphocytes % (Manual) Monocytes % (Manual) Eosinophils % (Manual) Platelet Estimate Large Platelets Polychromasia Anisocytosis (manual) Sodium Potassium Chloride Carbon Dioxide Anion Gap BUN Creatinine Est GFR ( Amer) Est GFR (Non-Af Amer) Random Glucose Calcium Phosphorus Magnesium Total Bilirubin GGT AST ALT Alkaline Phosphatase Total Protein Albumin Globulin Albumin/Globulin Ratio Triglycerides Cholesterol LDL Cholesterol Direct HDL Cholesterol Free T4 TSH 3rd Generation Hep Bs Antigen Hep Bs Antibody Negative Hep B Core IgM Ab Hepatitis C Antibody H.influenzae Type B Ag Mycoplasma pneumon IgM N.meningitidis ACY/W135 N.meningi B/E.coli K1 Ag Group B Strep Antigen S. pneumoniae Antigen
--- NOTE | 2018-05-01 20:23 | US ---
Date of service: 04/30/2018 HISTORY: Elevated liver enzymes post cholecystectomy COMPARISON: Comparison is made to the previous CT of the abdomen dated 04/30/2018 TECHNIQUE: Sonographic evaluation of the abdomen. FINDINGS: LIVER: Measures 15.8 cm. Increased echogenicity of the liver parenchyma. No mass. No intrahepatic bile duct dilatation. GALLBLADDER: Status post cholecystectomy COMMON BILE DUCT: Measures 7.7 mm. No stones. No dilatation. PANCREAS: Partially obscured by overlying bowel gas RIGHT KIDNEY: Measures 12.2 x 5.9 x 5.6cm. There is a cyst seen at the mid and lower pole of the right kidney measures 7.1 x 5.7 x 7.7 centimeter. There is also cyst at the midpole of the right kidney measures 1 x 1.1 x 1.2 centimeter. There is a cyst at the upper pole of the right kidney measures 2.3 x 2.1 x 2.2 centimeter. LEFT KIDNEY: Measures 11.7 x 5.1 x 4.9cm. Normal echogenicity. No calculus, mass, or hydronephrosis. There is a cyst seen at the midpole of the left kidney measures 1.1 x 1 x 1.4 centimeter. There is a echogenic focus in the cortex of the left kidney measures 0.4 x 0.2 x 0.6 centimeter likely represent cortical calcification. There is a cyst also seen at the left kidney measures 2.4 x 2 x 2 centimeter. SPLEEN: Normal in size and contour. No mass. AORTA: No aneurysmal dilatation. IVC: Unremarkable. OTHER FINDINGS: None. IMPRESSION: Echogenic liver. Multiple renal cyst as described above. The largest renal cyst is seen in the right side.
[2018-05-02 07:54] LABS: BASO # 0.1 K/uL (0.0-0.2); BASO % 0.5 % (0.0-2.0); EOS # 0.3 K/uL (0.0-0.7); EOS % 1.6 % (0.0-4.0); HEMOGLOBIN 11.8 g/dL (12.0-18.0); LYMPH # 1.6 K/uL (1.0-4.3); LYMPH % 10.2 % (20.0-40.0); MEAN CELL VOLUME 87.4 fL (80.0-94.0); MEAN CORPUSCULAR HEMOGLOBIN 29.1 pg (27.0-31.0); MEAN CORPUSCULAR HGB CONC 33.4 g/dL (33.0-37.0); MONO # 0.8 K/uL (0.0-0.8); MONO % 4.9 % (0.0-10.0); NEUT # 13.3 K/uL (1.8-7.0); NEUT % 82.8 % (50.0-75.0); RBC 4.06 Mil/uL (4.40-5.90); RED CELL DISTRIBUTION WIDTH 14.4 % (11.5-14.5); WHITE BLOOD COUNT 16.1 K/uL (4.8-10.8)
[2018-05-02 08:06] LABS: ALBUMIN 2.9 g/dL (3.5-5.0); ALT/SGPT 65 U/L (21-72); AST/SGOT 69 U/L (17-59); BILIRUBIN,DIRECT 0.5 mg/dL (0.0-0.4); BLOOD UREA NITROGEN 12 mg/dL (9-20); CALCIUM 8.3 mg/dl (8.6-10.4); GAMMA GLUTAMYL TRANSPEPTIDASE 190 U/L (8-78); GFR AFRICAN-AMERICAN > 60; GFR NON-AFRICAN AMERICAN > 60
[2018-05-02] MEDS: Sodium Chloride 0.9% 1,000 ML IV SCH (09:52)
[2018-05-02] MEDS: Metoprolol Succinate 25 mg XL Tab PO SCH (09:55)
[2018-05-02] MEDS: Potassium Chloride 20 mEq ER Tab PO SCH (09:55)
[2018-05-02] MEDS: Lactobacillus Acidophilus 500 MU Cap PO SCH ×2 (10:02→17:52)
[2018-05-02] MEDS: Azithromycin 500 MG in Sodium Chloride 0.9% 250 ML IVPB SCH (10:54)
--- NOTE | 2018-05-02 12:20 | CP.PCM.PN ---
Subjective - Date & Time of Evaluation Date of Evaluation: 05/02/18 Time of Evaluation: 12:18 - Subjective Subjective: COVERING DR BRANDON No diarrhea or pain. Alk Phos and GGTP slightly higher. Sonogram shows no stones and CBD 6mm. S/P Margaret. Objective - Vital Signs/Intake and Output Vital Signs (last 24 hours): Temp Pulse Resp BP Pulse Ox 97.6 F 88 20 123/66 96 05/02/18 07:15 05/02/18 09:52 05/02/18 07:15 05/02/18 09:52 05/02/18 07:15 Intake and Output: 05/02/18 05/02/18 06:59 18:59 Intake Total 600 Output Total 100 Balance 500 - Medications Medications: Current Medications Aspirin (Aspirin Chewable) 81 mg PO DAILY [facility] Last Admin: 05/02/18 09:55 Dose: 81 mg Heparin Sodium (Porcine) (Heparin) 5,000 units SC Q12 [facility] Last Admin: 05/02/18 09:55 Dose: 5,000 units Sodium Chloride (Sodium Chloride 0.9%) 1,000 mls @ 75 mls/hr IV .[id number] [facility] Last Admin: 05/02/18 09:52 Dose: 75 mls/hr Azithromycin 500 mg/ Sodium (Chloride) 250 mls @ 250 mls/hr IVPB DAILY [facility] PRN Reason: Protocol Last Admin: 05/02/18 10:54 Dose: 250 mls/hr Ceftriaxone Sodium 1 gm/ (Sodium Chloride) 100 mls @ 100 mls/hr IVPB DAILY [facility] PRN Reason: Protocol Last Admin: 05/02/18 09:54 Dose: 100 mls/hr Lactobacillus Acidophilus (Bacid Acidophilus) 1 cap PO BID [facility] Last Admin: 05/02/18 10:02 Dose: 1 cap Metoprolol Succinate (Toprol Xl) 25 mg PO DAILY [facility] Last Admin: 05/02/18 09:55 Dose: 25 mg Potassium Chloride (K-Dur 20 Meq Er Tab) 20 meq PO DAILY [facility] Last Admin: 05/02/18 09:55 Dose: 20 meq Rosuvastatin Calcium (Crestor) 5 mg PO HS [facility] Last Admin: 05/01/18 21:28 Dose: 5 mg - Labs Labs: 05/02/18 07:27 05/02/18 07:27 PT 13.5 SECONDS (9.7-12.2) H 04/29/18 18:22 INR 1.2 04/29/18 18:22 APTT 39 SECONDS (21-34) H 04/29/18 18:22 - Constitutional Appears: No Acute Distress - Head Exam Head Exam: ATRAUMATIC, NORMOCEPHALIC - Respiratory Exam Respiratory Exam: NORMAL BREATHING PATTERN - Cardiovascular Exam Cardiovascular Exam: REGULAR RHYTHM - GI/Abdominal Exam GI & Abdominal Exam: Soft, Normal Bowel Sounds. absent: Distended, Guarding, Tenderness, Mass, Rebound - Extremities Exam Extremities Exam: Normal Inspection Assessment and Plan (1) Abnormal alkaline phosphatase test Assessment & Plan: No evidence of ductal dilatation on Sono. May be drug related. Consider MRCP when Cardiology work up has been completed. Status: Acute (2) Diarrhea Assessment & Plan: Absent symtoms since admission. Status: Resolved (3) Liver enzyme elevation Assessment & Plan: as above. Viral heptatitis studies all negative . Status: Acute
--- NOTE | 2018-05-02 13:59 | CP.PCM.PN ---
Subjective - Date & Time of Evaluation Date of Evaluation: 05/02/18 Time of Evaluation: 07:00 - Subjective Subjective: Patient was admitted 04/29/18 with weakness, diarrhea, urinary retentin and hematuria. Evaluation in the ER showed leukocytosis, WBC 19,200, and RML and RLL infiltrate on CT scan. Objective - Vital Signs/Intake and Output Vital Signs (last 24 hours): Temp Pulse Resp BP Pulse Ox 97.6 F 88 20 123/66 96 05/02/18 07:15 05/02/18 09:52 05/02/18 07:15 05/02/18 09:52 05/02/18 07:15 Intake and Output: 05/02/18 05/02/18 06:59 18:59 Intake Total 600 Output Total 100 Balance 500 - Medications Medications: Current Medications Aspirin (Aspirin Chewable) 81 mg PO DAILY [facility] Last Admin: 05/02/18 09:55 Dose: 81 mg Heparin Sodium (Porcine) (Heparin) 5,000 units SC Q12 [facility] Last Admin: 05/02/18 09:55 Dose: 5,000 units Sodium Chloride (Sodium Chloride 0.9%) 1,000 mls @ 75 mls/hr IV .[id number] [facility] Last Admin: 05/02/18 09:52 Dose: 75 mls/hr Azithromycin 500 mg/ Sodium (Chloride) 250 mls @ 250 mls/hr IVPB DAILY [facility] PRN Reason: Protocol Last Admin: 05/02/18 10:54 Dose: 250 mls/hr Ceftriaxone Sodium 1 gm/ (Sodium Chloride) 100 mls @ 100 mls/hr IVPB DAILY [facility] PRN Reason: Protocol Last Admin: 05/02/18 09:54 Dose: 100 mls/hr Lactobacillus Acidophilus (Bacid Acidophilus) 1 cap PO BID [facility] Last Admin: 05/02/18 10:02 Dose: 1 cap Metoprolol Succinate (Toprol Xl) 25 mg PO DAILY [facility] Last Admin: 05/02/18 09:55 Dose: 25 mg Potassium Chloride (K-Dur 20 Meq Er Tab) 20 meq PO DAILY [facility] Last Admin: 05/02/18 09:55 Dose: 20 meq Rosuvastatin Calcium (Crestor) 5 mg PO HS [facility] Last Admin: 05/01/18 21:28 Dose: 5 mg - Labs Labs: 05/02/18 07:27 05/02/18 07:27 PT 13.5 SECONDS (9.7-12.2) H 04/29/18 18:22 INR 1.2 04/29/18 18:22 APTT 39 SECONDS (21-34) H 04/29/18 18:22 - Constitutional Appears: Non-toxic, Chronically Ill - Head Exam Head Exam: NORMOCEPHALIC - Eye Exam Eye Exam: absent: Scleral icterus - ENT Exam ENT Exam: Mucous Membranes Dry - Neck Exam Neck Exam: absent: Lymphadenopathy - Respiratory Exam Respiratory Exam: Decreased Breath Sounds - Cardiovascular Exam Cardiovascular Exam: REGULAR RHYTHM, +S1, +S2. absent: Clicks - GI/Abdominal Exam GI & Abdominal Exam: Distended, Soft Assessment and Plan (1) Diarrhea Status: Resolved (2) Liver enzyme elevation Status: Acute (3) Pneumonia Status: Acute (4) Hypertension Status: Acute - Assessment and Plan (Free Text) Assessment: cont rx CAP await cultures
[2018-05-02] MEDS: Piperacill/Tazo 3.375gm in Dex 3.375 GM/50 ML BAG IVPB SCH ×2 (14:17→22:04)
--- NOTE | 2018-05-02 16:04 | CP.PCM.PN ---
<Mignon Kwong - Last Filed: 05/02/18 20:26> Subjective - Date & Time of Evaluation Date of Evaluation: 05/02/18 Time of Evaluation: 10:10 - Subjective Subjective: PGY 3 Med Note - Dr. Khurram Faust's service Patient seen and examined in no acute distress. Patient states that he is feeling better. He states that his cough is improved. Patient reported minimal symptoms at this time. Objective - Vital Signs/Intake and Output Vital Signs (last 24 hours): Temp Pulse Resp BP Pulse Ox 98 F 86 20 150/72 96 05/02/18 15:47 05/02/18 15:47 05/02/18 15:47 05/02/18 15:47 05/02/18 15:47 Intake and Output: 05/02/18 05/02/18 06:59 18:59 Intake Total 600 650 Output Total 100 Balance 500 650 - Medications Medications: Current Medications Aspirin (Aspirin Chewable) 81 mg PO DAILY [facility] Last Admin: 05/02/18 09:55 Dose: 81 mg Heparin Sodium (Porcine) (Heparin) 5,000 units SC Q12 [facility] Last Admin: 05/02/18 09:55 Dose: 5,000 units Azithromycin 500 mg/ Sodium (Chloride) 250 mls @ 250 mls/hr IVPB DAILY [facility] PRN Reason: Protocol Last Admin: 05/02/18 10:54 Dose: 250 mls/hr Piperacillin Sod/Tazobactam Sod (Zosyn 3.375 Gm Iv Premix) 3.375 gm in 50 mls @ 100 mls/hr IVPB Q8H [facility] PRN Reason: Protocol Last Admin: 05/02/18 14:17 Dose: 100 mls/hr Lactobacillus Acidophilus (Bacid Acidophilus) 1 cap PO BID [facility] Last Admin: 05/02/18 10:02 Dose: 1 cap Metoprolol Succinate (Toprol Xl) 25 mg PO DAILY [facility] Last Admin: 05/02/18 09:55 Dose: 25 mg Potassium Chloride (K-Dur 20 Meq Er Tab) 20 meq PO DAILY [facility] Last Admin: 05/02/18 09:55 Dose: 20 meq Rosuvastatin Calcium (Crestor) 5 mg PO HS [facility] Last Admin: 05/01/18 21:28 Dose: 5 mg - Labs Labs: 05/02/18 07:27 08/12/18 07:27 PT 13.5 SECONDS (9.7-12.2) H 04/29/18 18:22 INR 1.2 04/29/18 18:22 APTT 39 SECONDS (21-34) H 04/29/18 18:22 - Constitutional Appears: Non-toxic, No Acute Distress - Head Exam Head Exam: ATRAUMATIC, NORMAL INSPECTION, NORMOCEPHALIC - Eye Exam Eye Exam: EOMI, Normal appearance, PERRL Pupil Exam: NORMAL ACCOMODATION - ENT Exam ENT Exam: Mucous Membranes Moist - Neck Exam Neck Exam: Full ROM - Respiratory Exam Respiratory Exam: Decreased Breath Sounds, NORMAL BREATHING PATTERN. absent: Wheezes - Cardiovascular Exam Cardiovascular Exam: +S1, +S2 - GI/Abdominal Exam GI & Abdominal Exam: Soft. absent: Tenderness - Extremities Exam Extremities Exam: Full ROM. absent: Tenderness - Back Exam Back Exam: Full ROM - Neurological Exam Neurological Exam: Alert, Awake - Psychiatric Exam Psychiatric exam: Flat Affect - Skin Skin Exam: Warm Additional comments: abrasion of hip- no bruising or ulceration noted Assessment and Plan - Assessment and Plan (Free Text) Assessment: Pneumonia - Afebrile - Leukocytosis stable - Chest CT confirm consolidation changes in right lower lobe pneumonia. Refer to complete report - Strep pneumo, mycoplasma pneumo, legionella all negative - Blood cultures- no growth - Procalcitonin within normal limits - Azithromycin 500mg IV daily, started 04/30/18. Need a total of 10 days - Lactobacillus acidophilus 1 cap PO BIDstarted 04/30/18 - Rocephin 1gm IV daily, started 04/30/18 - Continue to monitor -F/U ID recs Transaminitis - LFTs trending down. Avoid hepatotoxic agents. Hold Crestor at this time. - GI recommendations . Abdominal ultrasound imaging - CBD 7.7mm No stones or ductal dilatation noted. - Abdomen CT: Inferior margin of the unenhanced liver incompletely visualized. The visualized portions of the liver unremarkable without masses collections or calcifications. Cholecystectomy. Refer to complete report - Continue to monitor labs - F/U GI labs Hypertension - Continue home medication: Metoprolol 25mg PO daily - Heart healthy diet - Patient's cardiology history is unclear. Will touch base with Cardio- F/U Fall - Patient has history of CVA with residual left sided weakness - Patient typically uses walker at home - Head CT shows mild to moderate chronic periventricular white matter ischemic changes multiple more discrete deep and subcortical white matter as well basal nuclei and possibly brainstem lacunar type infarcts. Moderate to significant generalized volume loss. -PT/OT Low HDL -Diet modifications - Patient may benefit from Niacin. Patient to follow up with primary medical doctor regarding further management. History of ulcerative colitis - GI consulted. Per notes, doubtful of IBD flair in light of no current complaints of diarrhea - F/U GI recommendations Prophylaxis - DVT: SCDs, Heparin 5000U SC Q12h - GI: not indicated Disp- Physical therapy recommendations for TCU. F/U with Case management for placement planning. <Micky Faust - Last Filed: 05/02/18 22:51> Objective - Vital Signs/Intake and Output Vital Signs (last 24 hours): Temp Pulse Resp BP Pulse Ox 98 F 86 20 150/72 96 05/02/18 15:47 05/02/18 15:47 05/02/18 15:47 05/02/18 15:47 05/02/18 15:47 Intake and Output: 05/02/18 05/03/18 18:59 06:59 Intake Total 650 Balance 650 - Medications Medications: Current Medications Aspirin (Aspirin Chewable) 81 mg PO DAILY [facility] Last Admin: 05/02/18 09:55 Dose: 81 mg Heparin Sodium (Porcine) (Heparin) 5,000 units SC Q12 [facility] Last Admin: 05/02/18 22:04 Dose: 5,000 units Azithromycin 500 mg/ Sodium (Chloride) 250 mls @ 250 mls/hr IVPB DAILY [facility] PRN Reason: Protocol Last Admin: 05/02/18 10:54 Dose: 250 mls/hr Piperacillin Sod/Tazobactam Sod (Zosyn 3.375 Gm Iv Premix) 3.375 gm in 50 mls @ 100 mls/hr IVPB Q8H [facility] PRN Reason: Protocol Last Admin: 05/02/18 22:04 Dose: 100 mls/hr Lactobacillus Acidophilus (Bacid Acidophilus) 1 cap PO BID [facility] Last Admin: 05/02/18 17:52 Dose: 1 cap Metoprolol Succinate (Toprol Xl) 25 mg PO DAILY [facility] Last Admin: 05/02/18 09:55 Dose: 25 mg Potassium Chloride (K-Dur 20 Meq Er Tab) 20 meq PO DAILY [facility] Last Admin: 05/02/18 09:55 Dose: 20 meq Rosuvastatin Calcium (Crestor) 5 mg PO HS [facility] Last Admin: 05/01/18 21:28 Dose: 5 mg - Labs Labs: 05/02/18 07:27 05/02/18 07:27 PT 13.5 SECONDS (9.7-12.2) H 04/29/18 18:22 INR 1.2 04/29/18 18:22 APTT 39 SECONDS (21-34) H 04/29/18 18:22 Attending/Attestation - Attestation I have personally seen and examined this patient.: Yes I have fully participated in the care of the patient.: Yes I have reviewed all pertinent clinical information, including history, physical exam and plan: Yes Notes (Text): 05/02/18 22:43 Patient was seen and examined at 3:15 PM 05/02/18 556 A Exam, assessment and plan were gone over in detail with resident Dr. Kwong. Also on ROS: Offers no complaints upon FULL ROS Also on Exam: Right lower lung field inspiratory crackles Right hip abrasion with some purple bruising with NO evidence of any hematoma ( son explained that patient rolled over a mattress onto floor roughly 1 foot in height) NO skin ulcers noted C. diff negative Stool occult blood is negative Stool leukocyte is negative Hepatitis panel negative Urine Legionella and Strep pneumoniae are negative Influenza is negative Stool culture is pending Calprotectin is pending Blood culture 04/29/18 is negative to date Urine culture 04/29/18 is negative to date Alk phos and GGT elevated. However CBD shows NO dilatation. Could these elevations be secondary to medication? Follow up with GI Dr. Coates If patient remains fever free, then patient should be stable to transfer to TCU as recommended by PT. Medicine Team please speak with Andrey Navamicheal on 05/03/18 to see if patient insurance approves TCU transfer. Speak with ID Dr. Gonzales concerning completion of antibiotic regimen Plan of care was gone over with Son who was at bedside. Micky Faust D.O.
[2018-05-03] MEDS: Piperacill/Tazo 3.375gm in Dex 3.375 GM/50 ML BAG IVPB SCH ×3 (05:07→21:19)
--- NOTE | 2018-05-03 06:59 | CP.PCM.PN ---
<Sana Cohen L - Last Filed: 05/03/18 18:48> Subjective - Date & Time of Evaluation Date of Evaluation: 05/03/18 Time of Evaluation: 06:59 - Subjective Subjective: Resident Progress Note for Hospitalist Service Patient examined at bedside. No acute events overnight. Has no complaints at this time. Denies chest pain, shortness of breath, abdominal pain, changes in bowel movements, dysuria. Objective - Vital Signs/Intake and Output Vital Signs (last 24 hours): Temp Pulse Resp BP Pulse Ox 99.3 F 86 20 127/69 95 05/02/18 23:19 05/02/18 23:19 05/02/18 23:19 05/02/18 23:19 05/02/18 23:19 Intake and Output: 05/02/18 05/03/18 18:59 06:59 Intake Total 650 Balance 650 - Medications Medications: Current Medications Aspirin (Aspirin Chewable) 81 mg PO DAILY [facility] Last Admin: 05/02/18 09:55 Dose: 81 mg Heparin Sodium (Porcine) (Heparin) 5,000 units SC Q12 [facility] Last Admin: 05/02/18 22:04 Dose: 5,000 units Azithromycin 500 mg/ Sodium (Chloride) 250 mls @ 250 mls/hr IVPB DAILY [facility] PRN Reason: Protocol Last Admin: 05/02/18 10:54 Dose: 250 mls/hr Piperacillin Sod/Tazobactam Sod (Zosyn 3.375 Gm Iv Premix) 3.375 gm in 50 mls @ 100 mls/hr IVPB Q8H [facility] PRN Reason: Protocol Last Admin: 05/03/18 05:07 Dose: 100 mls/hr Lactobacillus Acidophilus (Bacid Acidophilus) 1 cap PO BID [facility] Last Admin: 05/02/18 17:52 Dose: 1 cap Metoprolol Succinate (Toprol Xl) 25 mg PO DAILY [facility] Last Admin: 05/02/18 09:55 Dose: 25 mg Potassium Chloride (K-Dur 20 Meq Er Tab) 20 meq PO DAILY [facility] Last Admin: 05/02/18 09:55 Dose: 20 meq Rosuvastatin Calcium (Crestor) 5 mg PO HS [facility] Last Admin: 05/01/18 21:28 Dose: 5 mg - Labs Labs: 05/02/18 07:27 05/02/18 07:27 PT 13.5 SECONDS (9.7-12.2) H 04/29/18 18:22 INR 1.2 04/29/18 18:22 APTT 39 SECONDS (21-34) H 04/29/18 18:22 - Additional Findings Additional findings: - Constitutional Appears: Well, No Acute Distress - Head Exam Head Exam: NORMOCEPHALIC Additional comments: Small abrasions on head from recent fall - Eye Exam Eye Exam: EOMI, Normal appearance - ENT Exam ENT Exam: Mucous Membranes Moist, Normal Exam - Neck Exam Neck Exam: Full ROM, Normal Inspection - Respiratory Exam Respiratory Exam: NORMAL BREATHING PATTERN. absent: Rhonchi, Wheezes, Respiratory Distress Additional comments: Crackles in right lower lung velasquez - Cardiovascular Exam Cardiovascular Exam: REGULAR RHYTHM, +S1, +S2 - GI/Abdominal Exam GI & Abdominal Exam: Soft, Normal Bowel Sounds. absent: Distended, Firm, Tenderness, Organomegaly - Extremities Exam Extremities Exam: Normal Capillary Refill, Normal Inspection. absent: Tenderness - Back Exam Back Exam: NORMAL INSPECTION - Neurological Exam Neurological Exam: Alert, Awake - Psychiatric Exam Psychiatric exam: Normal Affect, Normal Mood - Skin Skin Exam: Dry, Intact Additional comments: Ecchymosis on right hip from fall Assessment and Plan - Assessment and Plan (Free Text) Plan: Pneumonia - Afebrile - Leukocytosis stable - Chest CT confirm consolidation changes in right lower lobe pneumonia. Refer to complete report - Strep pneumo, mycoplasma pneumo, legionella all negative - Blood cultures- no growth - Procalcitonin within normal limits - Azithromycin 500mg IV daily, started 04/30/18. Need a total of 10 days - Lactobacillus acidophilus 1 cap PO BID started 04/30/18 - Zosyn 3.375 grams IV Q8H - Continue to monitor - F/U ID recs Transaminitis - LFTs trending down. Avoid hepatotoxic agents. Hold Crestor at this time. - GI recommendations . Abdominal ultrasound imaging - CBD 7.7mm No stones or ductal dilatation noted. - Abdomen CT: Inferior margin of the unenhanced liver incompletely visualized. The visualized portions of the liver unremarkable without masses collections or calcifications. Cholecystectomy. Refer to complete report - Continue to monitor labs - F/U GI labs - MRCP attempted, however was not able to be completed as patient was unable to cooperate Hypertension - Continue home medication: Metoprolol 25mg PO daily - Heart healthy diet - Patient's cardiology history is unclear. Will touch base with Cardio- F/U Fall - Patient has history of CVA with residual left sided weakness - Patient typically uses walker at home - Head CT shows mild to moderate chronic periventricular white matter ischemic changes multiple more discrete deep and subcortical white matter as well basal nuclei and possibly brainstem lacunar type infarcts. Moderate to significant generalized volume loss. - PT/OT Low HDL - Diet modifications - Patient may benefit from Niacin. Patient to follow up with primary medical doctor regarding further management. History of ulcerative colitis - GI consulted. Per notes, doubtful of IBD flair in light of no current complaints of diarrhea - F/U GI recommendations Prophylaxis - DVT: SCDs, Heparin 5000U SC Q12h - GI: not indicated Disp- Physical therapy recommendations for TCU. F/U with Case management for placement planning. Sana Cohen PGY-1 <Joslyn Simmons V - Last Filed: 05/03/18 23:20> Objective - Vital Signs/Intake and Output Vital Signs (last 24 hours): Temp Pulse Resp BP Pulse Ox 98 F 80 18 127/75 98 05/03/18 16:05 05/03/18 16:05 05/03/18 16:05 05/03/18 16:05 05/03/18 16:05 - Medications Medications: Current Medications Aspirin (Aspirin Chewable) 81 mg PO DAILY [facility] Last Admin: 05/03/18 09:51 Dose: 81 mg Heparin Sodium (Porcine) (Heparin) 5,000 units SC Q12 [facility] Last Admin: 05/03/18 21:18 Dose: 5,000 units Azithromycin 500 mg/ Sodium (Chloride) 250 mls @ 250 mls/hr IVPB DAILY [facility] PRN Reason: Protocol Last Admin: 05/03/18 09:51 Dose: 250 mls/hr Piperacillin Sod/Tazobactam Sod (Zosyn 3.375 Gm Iv Premix) 3.375 gm in 50 mls @ 100 mls/hr IVPB Q8H [facility] PRN Reason: Protocol Last Admin: 05/03/18 21:19 Dose: 100 mls/hr Lactobacillus Acidophilus (Bacid Acidophilus) 1 cap PO BID [facility] Last Admin: 05/03/18 17:39 Dose: 1 cap Metoprolol Succinate (Toprol Xl) 25 mg PO DAILY [facility] Last Admin: 05/03/18 09:51 Dose: 25 mg Rosuvastatin Calcium (Crestor) 5 mg PO HS [facility] Last Admin: 05/01/18 21:28 Dose: 5 mg - Labs Labs: 05/03/18 08:18 05/03/18 08:18 PT 13.5 SECONDS (9.7-12.2) H 04/29/18 18:22 INR 1.2 04/29/18 18:22 APTT 39 SECONDS (21-34) H 04/29/18 18:22 Attending/Attestation - Attestation I have personally seen and examined this patient.: Yes I have fully participated in the care of the patient.: Yes I have reviewed all pertinent clinical information, including history, physical exam and plan: Yes Notes (Text): Patient seen, examined, and case discussed with certified medical assistant. Patient seen at bedside with his . Reviewed emr and updated assessment/plan noted below. Assessment/Plan 1) Pneumonia Assessment/Plan * Chest CT (04/30/18): right middle lobe and lower lobe infiltrate. Mild atelectasis both posterior sulci. Vague ground glass opacities both lower lung zones. Centrilobular emphsematous changes. Mild Aneurysmal dilatation of the ascending thoracic aorta. cardiomegaly with small pericardial effusion. Chroic compression fracture L2 segment. Mild splenomegaly. Cholecystectomy. * Chest xray (04/29/18): right lower lobe pneumonia * Strep pneumo, mycoplasma pneumo, legionella all negative * Influenza; negative * Blood cultures (04/29/18)- no growth after 4 days X2 * Azithromycin 500mg IV daily (active since 04/30/18) * Zosyn 3.375 IV Q8H (active since /05/02/18) * Lactobacillus acidophilus 1 cap PO BID 2) Transaminitis Assessment/Plan * GI (Dr. Coates) on consult-->help appreciated * Recommended for MRCP by GI; however, patient was unable to hold breathe necessary for the test. * Patient statin is on hold * Abdominal US (05/01/18): echogenic liver. multiple renal cysts noted * hepatitis panel: negative 3) Hypertension Assessment/Plan * Toprol XL 25mg PO daily 4) Cardiomegaly and small pericardial effusion Assessment/Plan * Cardiology (Dr. Bliss) on consult-->help appreciated * Chest CT (04/30/18): right middle lobe and lower lobe infiltrate. Mild atelectasis both posterior sulci. Vague ground glass opacities both lower lung zones. Centrilobular emphsematous changes. Mild Aneurysmal dilatation of the ascending thoracic aorta. cardiomegaly with small pericardial effusion. Chroic compression fracture L2 segment. Mild splenomegaly. Cholecystectomy. * Lexiscan (Dr. Bliss; 02/02/18): EF 72%. Normal study with no evidence of ischemia (see full report) * ECHO, Holtor, and Carotid dopplers (06/07): within normal limits 5) History of prior CVA with residual left sided weakness Assessment/Plan * Statin on hold given transaminitis * Aspirin 81mg PO daily * Toprol XL 25mg PO daily 6) Fall Assessment/Plan * Patient typically uses walker at home * Head CT shows mild to moderate chronic periventricular white matter ischemic changes multiple more discrete deep and subcortical white matter as well basal nuclei and possibly brainstem lacunar type infarcts. Moderate to significant generalized volume loss. * PT/OT eval 7) Low HDL Assessment/Plan * Diet modifications * HDL: 15 (lipid panel is within normal limits except for HDL) 8) History of ulcerative colitis Assessment/Plan * GI (Dr. Coates) on consult-->help appreciated * per GI consult: last colonoscopy was 03/01/2015 and showed pseudopolyps in the descending colon and quiescent colitis. * C+S, C diff, occult blood, leukocytes, calprotectin. Doubt exacerbation of colitis. 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 and we will need for gi in regards to further workup for transaminitis since patient is unable to complete MRCP due to technical limitation.
[2018-05-03 08:31] LABS: BASO # 0.1 K/uL (0.0-0.2); BASO % 0.8 % (0.0-2.0); EOS # 0.3 K/uL (0.0-0.7); HEMOGLOBIN 11.2 g/dL (12.0-18.0); LYMPH # 1.4 K/uL (1.0-4.3); LYMPH % 9.2 % (20.0-40.0); MEAN CORPUSCULAR HEMOGLOBIN 29.2 pg (27.0-31.0); MEAN PLATELET VOLUME 8.7 fL (7.2-11.7); MONO # 0.8 K/uL (0.0-0.8); MONO % 5.4 % (0.0-10.0); NEUT # 12.6 K/uL (1.8-7.0); NEUT % 82.6 % (50.0-75.0); NRBC % 0.1 % (0.0-2.0); PLATELET COUNT 271 K/uL (130-400); RBC 3.84 Mil/uL (4.40-5.90); RED CELL DISTRIBUTION WIDTH 14.5 % (11.5-14.5); WHITE BLOOD COUNT 15.2 K/uL (4.8-10.8)
[2018-05-03 08:42] LABS: ALBUMIN 2.8 g/dL (3.5-5.0); ALT/SGPT 73 U/L (21-72); AST/SGOT 98 U/L (17-59); BLOOD UREA NITROGEN 14 mg/dL (9-20); CALCIUM 8.5 mg/dl (8.6-10.4); GFR AFRICAN-AMERICAN > 60; GFR NON-AFRICAN AMERICAN > 60
--- NOTE | 2018-05-03 09:08 | CP.PCM.PN ---
Subjective - Date & Time of Evaluation Date of Evaluation: 05/03/18 Time of Evaluation: 09:07 - Subjective Subjective: Patient denies having nausea, vomiting, abdominal pain, diarrhea and rectal bleeding. Objective - Vital Signs/Intake and Output Vital Signs (last 24 hours): Temp Pulse Resp BP Pulse Ox 98.1 F 77 18 119/58 L 97 05/03/18 07:50 05/03/18 07:50 05/03/18 07:50 05/03/18 07:50 05/03/18 07:50 - Medications Medications: Current Medications Aspirin (Aspirin Chewable) 81 mg PO DAILY [facility] Last Admin: 05/02/18 09:55 Dose: 81 mg Heparin Sodium (Porcine) (Heparin) 5,000 units SC Q12 [facility] Last Admin: 05/02/18 22:04 Dose: 5,000 units Azithromycin 500 mg/ Sodium (Chloride) 250 mls @ 250 mls/hr IVPB DAILY [facility] PRN Reason: Protocol Last Admin: 05/02/18 10:54 Dose: 250 mls/hr Piperacillin Sod/Tazobactam Sod (Zosyn 3.375 Gm Iv Premix) 3.375 gm in 50 mls @ 100 mls/hr IVPB Q8H [facility] PRN Reason: Protocol Last Admin: 05/03/18 05:07 Dose: 100 mls/hr Lactobacillus Acidophilus (Bacid Acidophilus) 1 cap PO BID [facility] Last Admin: 05/02/18 17:52 Dose: 1 cap Metoprolol Succinate (Toprol Xl) 25 mg PO DAILY [facility] Last Admin: 05/02/18 09:55 Dose: 25 mg Potassium Chloride (K-Dur 20 Meq Er Tab) 20 meq PO DAILY [facility] Last Admin: 05/02/18 09:55 Dose: 20 meq Rosuvastatin Calcium (Crestor) 5 mg PO HS [facility] Last Admin: 05/01/18 21:28 Dose: 5 mg - Labs Labs: 05/03/18 08:18 05/03/18 08:18 PT 13.5 SECONDS (9.7-12.2) H 04/29/18 18:22 INR 1.2 04/29/18 18:22 APTT 39 SECONDS (21-34) H 04/29/18 18:22 - Constitutional Appears: No Acute Distress - Head Exam Head Exam: ATRAUMATIC, NORMOCEPHALIC - Eye Exam Eye Exam: EOMI, PERRL - Neck Exam Neck Exam: absent: Lymphadenopathy, Thyromegaly - Respiratory Exam Respiratory Exam: NORMAL BREATHING PATTERN. absent: Rales, Rhonchi, Wheezes - Cardiovascular Exam Cardiovascular Exam: REGULAR RHYTHM, +S1, +S2. absent: Gallop, Rubs, Murmur - GI/Abdominal Exam GI & Abdominal Exam: Soft, Normal Bowel Sounds. absent: Tenderness, Mass, Organomegaly - Rectal Exam Rectal Exam: Deferred - Extremities Exam Extremities Exam: absent: Calf Tenderness, Pedal Edema Assessment and Plan (1) Diarrhea Assessment & Plan: Diarrhea has improved. Stool occult blood, leukocytes and C difficile toxin were negative. Will observe. Status: Resolved (2) Liver enzyme elevation Assessment & Plan: Liver enzymes continue to fluctuate. Recent blood work 05/03/18 showed ALKP 326 (up from 238 on 04/30), AST 98 (106), and ALT 73 (67). Will order MRCP. Status: Acute
[2018-05-03] MEDS: Azithromycin 500 MG in Sodium Chloride 0.9% 250 ML IVPB SCH (09:51)
[2018-05-03] MEDS: Metoprolol Succinate 25 mg XL Tab PO SCH (09:51)
[2018-05-03] MEDS: Potassium Chloride 20 mEq ER Tab PO SCH (09:51)
[2018-05-03] MEDS: Lactobacillus Acidophilus 500 MU Cap PO SCH ×2 (09:51→17:39)
[2018-05-03 10:37] LABS: BANDS 7 % (0-2); EOSINOPHIL 1 % (0-4); LYMPHOCYTE 11 % (20-40); METAMYELOCYTE 3 % (0-0); MONOCYTE 5 % (0-10); MYELOCYTE 1 % (0-0); NEUTROPHIL 72 % (50-75); PLATELET ESTIMATE NORMAL (NORMAL); TOTAL CELLS COUNTED 100
--- NOTE | 2018-05-03 11:35 | CP.PCM.PN ---
Subjective - Date & Time of Evaluation Date of Evaluation: 05/03/18 Time of Evaluation: 09:00 - Subjective Subjective: Norm Hanna, PGY1 Cardiology Progress Note for Dr. Bliss Patient was seen and examined at bedside this morning. Patient was awake, alert and oriented x3; no acute distress. Patient denied lightheadedness, dizziness, chest pain, shortness of breath, abdominal pain, n/v/d, and pain in the upper and lower extremities. Patient does complain of cough, which has improved since admission. Patient was explained that the reason for his admission was for treatment of his pneumonia. As per nurse, no changes overnight. A Full 12 point ROS was conducted and unremarkable except as stated above. Objective - Vital Signs/Intake and Output Vital Signs (last 24 hours): Temp Pulse Resp BP Pulse Ox 98.1 F 77 18 119/58 L 97 05/03/18 07:50 05/03/18 07:50 05/03/18 07:50 05/03/18 07:50 05/03/18 07:50 - Medications Medications: Current Medications Aspirin (Aspirin Chewable) 81 mg PO DAILY [facility] Last Admin: 05/03/18 09:51 Dose: 81 mg Heparin Sodium (Porcine) (Heparin) 5,000 units SC Q12 [facility] Last Admin: 05/03/18 09:51 Dose: 5,000 units Azithromycin 500 mg/ Sodium (Chloride) 250 mls @ 250 mls/hr IVPB DAILY [facility] PRN Reason: Protocol Last Admin: 05/03/18 09:51 Dose: 250 mls/hr Piperacillin Sod/Tazobactam Sod (Zosyn 3.375 Gm Iv Premix) 3.375 gm in 50 mls @ 100 mls/hr IVPB Q8H [facility] PRN Reason: Protocol Last Admin: 05/03/18 05:07 Dose: 100 mls/hr Lactobacillus Acidophilus (Bacid Acidophilus) 1 cap PO BID [facility] Last Admin: 05/03/18 09:51 Dose: 1 cap Metoprolol Succinate (Toprol Xl) 25 mg PO DAILY [facility] Last Admin: 05/03/18 09:51 Dose: 25 mg Rosuvastatin Calcium (Crestor) 5 mg PO HS [facility] Last Admin: 05/01/18 21:28 Dose: 5 mg - Labs Labs: 05/03/18 08:18 08/13/18 08:18 PT 13.5 SECONDS (9.7-12.2) H 04/29/18 18:22 INR 1.2 04/29/18 18:22 APTT 39 SECONDS (21-34) H 04/29/18 18:22 - Constitutional Appears: Well, No Acute Distress - Head Exam Head Exam: ATRAUMATIC, NORMAL INSPECTION, NORMOCEPHALIC - Eye Exam Eye Exam: EOMI, Normal appearance, PERRL - ENT Exam ENT Exam: Mucous Membranes Moist, Normal Exam - Neck Exam Neck Exam: Full ROM, Normal Inspection - Respiratory Exam Respiratory Exam: Clear to Ausculation Bilateral, NORMAL BREATHING PATTERN. absent: Decreased Breath Sounds, Rales, Rhonchi, Wheezes, Respiratory Distress, Stridor - Cardiovascular Exam Cardiovascular Exam: RRR, +S1, +S2. absent: Murmur - GI/Abdominal Exam GI & Abdominal Exam: Soft, Normal Bowel Sounds. absent: Guarding, Tenderness - Extremities Exam Extremities Exam: Full ROM, Normal Capillary Refill, Normal Inspection. absent : Joint Swelling, Pedal Edema - Back Exam Back Exam: NORMAL INSPECTION - Neurological Exam Neurological Exam: Alert, Awake, Oriented x3 Neuro motor strength exam: Left Upper Extremity: 5, Right Upper Extremity: 5, Left Lower Extremity: 5, Right Lower Extremity: 5 - Skin Skin Exam: Dry, Intact, Normal Color, Warm Assessment and Plan - Assessment and Plan (Free Text) Assessment: Patient is a 87 y/o M with PMHx of HTN who presented to the ED for weakness. Patient was found to have pneumonia on admission. CXR showed right lower lobe pneumonia. CT Chest/Abd indicated right mid and low lobe pneumonia, vague ground glass opacities of lower lung zones, and mild anuerysmal dilation of descending aorta. Patient was treated with antibiotics on the floor; condition is improving with vital signs stable. Cardiology was consulted for HTN and further evaluation of cardiac history. Plan: HTN - Currently normotensive (BP 119/58) and no ischemic symptoms during interview - Started on metoprolol 25 mg PO (home med), BP well controlled - c/w home meds - Jose (Dr. Bliss; 02/02/18): EF 72%. Normal study with no evidence of ischemia (see full report) - ECHO, Holtor, and Carotid dopplers (06/07): within normal limits - May follow up with filter changer outpatient Right Mid-Lower Lobe Pneumonia - afebrile, vital signs stable, clinically improving - Leukocytosis trending downwards - Strep pneumo, mycoplasma pneumo, legionella all negative - Blood cultures- no growth - Procalcitonin within normal limits - CT Chest/Abd: right mid-low lobe PNA, vague ground glass opacities in both lower lung zones. Cardiomegaly with small pericardial effusion. Mild aneurysmal dilation of ascending aorta. - CXR: right lower lobe PNA. - c/w antibiotic coverage: azithro, rocephin Transaminitis - LFTs trending down (AST/ALT 69/65) - Avoid hepatotoxic agents - Abdominal US: multiple renal cysts - f/u ID recs - Negative blood cx, negative urine cx - f/u GI recs - Hepatic panel negative DVT ppx: SCDs, Hep SC GI ppx: not indicated Dispo: Continue to manage patient on the floor for treatment of PNA. Case was discussed and reviewed with Junior Brand Manager Dr. Bliss.
--- NOTE | 2018-05-03 12:15 | CP.PCM.PN ---
Subjective - Date & Time of Evaluation Date of Evaluation: 05/03/18 Time of Evaluation: 10:00 - Subjective Subjective: less congested afeb nad Objective - Vital Signs/Intake and Output Vital Signs (last 24 hours): Temp Pulse Resp BP Pulse Ox 98.1 F 77 18 119/58 L 97 05/03/18 07:50 05/03/18 07:50 05/03/18 07:50 05/03/18 07:50 05/03/18 07:50 - Medications Medications: Current Medications Aspirin (Aspirin Chewable) 81 mg PO DAILY [facility] Last Admin: 05/03/18 09:51 Dose: 81 mg Heparin Sodium (Porcine) (Heparin) 5,000 units SC Q12 [facility] Last Admin: 05/03/18 09:51 Dose: 5,000 units Azithromycin 500 mg/ Sodium (Chloride) 250 mls @ 250 mls/hr IVPB DAILY [facility] PRN Reason: Protocol Last Admin: 05/03/18 09:51 Dose: 250 mls/hr Piperacillin Sod/Tazobactam Sod (Zosyn 3.375 Gm Iv Premix) 3.375 gm in 50 mls @ 100 mls/hr IVPB Q8H [facility] PRN Reason: Protocol Last Admin: 05/03/18 05:07 Dose: 100 mls/hr Lactobacillus Acidophilus (Bacid Acidophilus) 1 cap PO BID [facility] Last Admin: 05/03/18 09:51 Dose: 1 cap Metoprolol Succinate (Toprol Xl) 25 mg PO DAILY [facility] Last Admin: 05/03/18 09:51 Dose: 25 mg Rosuvastatin Calcium (Crestor) 5 mg PO HS [facility] Last Admin: 05/01/18 21:28 Dose: 5 mg - Labs Labs: 05/03/18 08:18 05/03/18 08:18 PT 13.5 SECONDS (9.7-12.2) H 04/29/18 18:22 INR 1.2 04/29/18 18:22 APTT 39 SECONDS (21-34) H 04/29/18 18:22 Assessment and Plan (1) Diarrhea Status: Resolved (2) Liver enzyme elevation Status: Acute (3) Pneumonia Status: Acute (4) Hypertension Status: Acute
[2018-05-04] MEDS: Piperacill/Tazo 3.375gm in Dex 3.375 GM/50 ML BAG IVPB SCH ×3 (05:39→21:26)
[2018-05-04 06:33] LABS: BASO # 0.1 K/uL (0.0-0.2); BASO % 0.6 % (0.0-2.0); EOS # 0.3 K/uL (0.0-0.7); EOS % 1.9 % (0.0-4.0); HEMOGLOBIN 11.8 g/dL (12.0-18.0); LYMPH # 1.4 K/uL (1.0-4.3); LYMPH % 9.8 % (20.0-40.0); MEAN CELL VOLUME 86.4 fL (80.0-94.0); MEAN CORPUSCULAR HGB CONC 33.6 g/dL (33.0-37.0); MEAN PLATELET VOLUME 8.1 fL (7.2-11.7); MONO # 0.8 K/uL (0.0-0.8); MONO % 5.7 % (0.0-10.0); NEUT # 12.1 K/uL (1.8-7.0); PLATELET COUNT 300 K/uL (130-400); RBC 4.08 Mil/uL (4.40-5.90); RED CELL DISTRIBUTION WIDTH 14.6 % (11.5-14.5); WHITE BLOOD COUNT 14.8 K/uL (4.8-10.8)
--- NOTE | 2018-05-04 06:47 | CP.PCM.PN ---
<Sana Cohen L - Last Filed: 05/04/18 16:55> Subjective - Date & Time of Evaluation Date of Evaluation: 05/04/18 Time of Evaluation: 06:47 - Subjective Subjective: Resident Progress Note for Hospitalist Service Patient examined at bedside. No acute events overnight. Has no complaints at this time. He has been eating and drinking well. Denies chest pain, shortness of breath, abdominal pain, nausea, vomiting, dysuria. Objective - Vital Signs/Intake and Output Vital Signs (last 24 hours): Temp Pulse Resp BP Pulse Ox 98.3 F 75 20 135/76 95 05/04/18 00:00 05/04/18 00:00 05/04/18 00:00 05/04/18 00:00 05/04/18 00:00 - Medications Medications: Current Medications Aspirin (Aspirin Chewable) 81 mg PO DAILY [facility] Last Admin: 05/03/18 09:51 Dose: 81 mg Heparin Sodium (Porcine) (Heparin) 5,000 units SC Q12 [facility] Last Admin: 05/03/18 21:18 Dose: 5,000 units Azithromycin 500 mg/ Sodium (Chloride) 250 mls @ 250 mls/hr IVPB DAILY [facility] PRN Reason: Protocol Last Admin: 05/03/18 09:51 Dose: 250 mls/hr Piperacillin Sod/Tazobactam Sod (Zosyn 3.375 Gm Iv Premix) 3.375 gm in 50 mls @ 100 mls/hr IVPB Q8H [facility] PRN Reason: Protocol Last Admin: 05/04/18 05:39 Dose: 100 mls/hr Lactobacillus Acidophilus (Bacid Acidophilus) 1 cap PO BID [facility] Last Admin: 05/03/18 17:39 Dose: 1 cap Metoprolol Succinate (Toprol Xl) 25 mg PO DAILY [facility] Last Admin: 05/03/18 09:51 Dose: 25 mg Rosuvastatin Calcium (Crestor) 5 mg PO HS [facility] Last Admin: 05/01/18 21:28 Dose: 5 mg - Labs Labs: 05/04/18 06:20 05/03/18 08:18 PT 13.5 SECONDS (9.7-12.2) H 04/29/18 18:22 INR 1.2 04/29/18 18:22 APTT 39 SECONDS (21-34) H 08/09/18 18:22 - Additional Findings Additional findings: - Constitutional Appears: Well, No Acute Distress - Head Exam Head Exam: NORMOCEPHALIC Additional comments: Small abrasions on head from recent fall - Eye Exam Eye Exam: EOMI, Normal appearance - ENT Exam ENT Exam: Mucous Membranes Moist, Normal Exam - Neck Exam Neck Exam: Full ROM, Normal Inspection - Respiratory Exam Respiratory Exam: Clear to Auscultation Bilateral, NORMAL BREATHING PATTERN. absent: Rhonchi, Wheezes, Respiratory Distress - Cardiovascular Exam Cardiovascular Exam: REGULAR RHYTHM, +S1, +S2 - GI/Abdominal Exam GI & Abdominal Exam: Soft, Normal Bowel Sounds. absent: Distended, Firm, Tenderness, Organomegaly - Extremities Exam Extremities Exam: Normal Capillary Refill, Normal Inspection. absent: Tenderness - Back Exam Back Exam: NORMAL INSPECTION - Neurological Exam Neurological Exam: Alert, Awake - Psychiatric Exam Psychiatric exam: Normal Affect, Normal Mood - Skin Skin Exam: Dry, Intact Additional comments: Ecchymosis on right hip from fall Assessment and Plan - Assessment and Plan (Free Text) Plan: Pneumonia - Afebrile - Leukocytosis stable - Chest CT confirm consolidation changes in right lower lobe pneumonia. Refer to complete report - Strep pneumo, mycoplasma pneumo, legionella negative - Blood cultures- no growth - Procalcitonin within normal limits - Lactobacillus acidophilus 1 cap PO BID started 04/30/18 - Zosyn 3.375 grams IV Q8H (to be discontinued on Thursday) - Continue to monitor - F/U ID recs Transaminitis - Avoid hepatotoxic agents. Hold Crestor at this time. - GI recommendations . Abdominal ultrasound imaging - CBD 7.7mm No stones or ductal dilatation noted. - Abdomen CT: Inferior margin of the unenhanced liver incompletely visualized. The visualized portions of the liver unremarkable without masses collections or calcifications. Cholecystectomy. Refer to complete report - Continue to monitor labs - F/U GI labs - MRCP attempted, however was not able to be completed as patient was unable to cooperate Hypertension - Continue home medication: Metoprolol 25mg PO daily - Heart healthy diet - Cardiology consulted. Recs appreciated. Fall - Patient has history of CVA with residual left sided weakness - Patient typically uses walker at home - Head CT shows mild to moderate chronic periventricular white matter ischemic changes multiple more discrete deep and subcortical white matter as well basal nuclei and possibly brainstem lacunar type infarcts. Moderate to significant generalized volume loss. - PT/OT Low HDL - Diet modifications - Patient may benefit from Niacin. Patient to follow up with primary medical doctor regarding further management. History of ulcerative colitis - GI consulted. Per notes, doubtful of IBD flair in light of no current complaints of diarrhea - F/U GI recommendations Prophylaxis - DVT: SCDs, Heparin 5000U SC Q12h - GI: not indicated Disp- Patient approved fo rehab placement. Pending resolution of transaminitis. Sana Cohen PGY-1 <Joslyn Simmons V - Last Filed: 05/04/18 22:04> Objective - Vital Signs/Intake and Output Vital Signs (last 24 hours): Temp Pulse Resp BP Pulse Ox 97.2 F L 87 20 115/68 96 05/04/18 16:00 05/04/18 16:00 05/04/18 16:00 05/04/18 16:00 05/04/18 16:00 Intake and Output: 05/04/18 05/05/18 18:59 06:59 Output Total 1050 Balance -1050 - Medications Medications: Current Medications Aspirin (Aspirin Chewable) 81 mg PO DAILY [facility] Last Admin: 05/04/18 09:40 Dose: 81 mg Heparin Sodium (Porcine) (Heparin) 5,000 units SC Q12 [facility] Last Admin: 05/04/18 21:25 Dose: 5,000 units Piperacillin Sod/Tazobactam Sod (Zosyn 3.375 Gm Iv Premix) 3.375 gm in 50 mls @ 100 mls/hr IVPB Q8H [facility] PRN Reason: Protocol Stop: 05/07/18 14:00 Last Admin: 05/04/18 21:26 Dose: 100 mls/hr Lactobacillus Acidophilus (Bacid Acidophilus) 1 cap PO BID [facility] Last Admin: 05/04/18 17:48 Dose: 1 cap Metoprolol Succinate (Toprol Xl) 25 mg PO DAILY [facility] Last Admin: 05/04/18 09:40 Dose: 25 mg - Labs Labs: 05/04/18 06:20 05/04/18 06:20 PT 13.5 SECONDS (9.7-12.2) H 04/29/18 18:22 INR 1.2 04/29/18 18:22 APTT 39 SECONDS (21-34) H 04/29/18 18:22 Attending/Attestation - Attestation I have personally seen and examined this patient.: Yes I have fully participated in the care of the patient.: Yes I have reviewed all pertinent clinical information, including history, physical exam and plan: Yes Notes (Text): Patient seen, examined, and case discussed with medical genetics director. Patient seen with at bedside, [place] and Citizen Of [place] assisting in translation Patient unable to hold breathe to tolerate MRCP. trying to advise patient at bedside but he is unable to hold breathe in. Patient does have elevated transaminitis. Azithromycin d/c. Statin d/c Resident has spoken with ID, recommended for Zosyn until Thursday and possible start Avelox has outpatient; does not think LFTs are related to abx. Case managenet has secure bed for rehab for the patient. pending LFTs to downtrend prior to starting Avelox ideally. Assessment/Plan 1) Pneumonia Assessment/Plan * Chest CT (04/30/18): right middle lobe and lower lobe infiltrate. Mild atelectasis both posterior sulci. Vague ground glass opacities both lower lung zones. Centrilobular emphsematous changes. Mild Aneurysmal dilatation of the ascending thoracic aorta. cardiomegaly with small pericardial effusion. Chroic compression fracture L2 segment. Mild splenomegaly. Cholecystectomy. * Chest xray (04/29/18): right lower lobe pneumonia * Strep pneumo, mycoplasma pneumo, legionella all negative * Influenza; negative * Blood cultures (04/29/18)- no growth after 4 days X2 * Azithromycin 500mg IV daily (active since 04/30/18) * Zosyn 3.375 IV Q8H (active since /05/02/18) * Lactobacillus acidophilus 1 cap PO BID 2) Transaminitis Assessment/Plan * GI (Dr. Coates) on consult-->help appreciated * Recommended for MRCP by GI; however, patient was unable to hold breathe necessary for the test. * Patient statin is on hold * Abdominal US (05/01/18): echogenic liver. multiple renal cysts noted * hepatitis panel: negative * +Hepatitis A Ab total-->reactive 3) Hypertension Assessment/Plan * Toprol XL 25mg PO daily 4) Cardiomegaly and small pericardial effusion Assessment/Plan * Cardiology (Dr. Bliss) on consult-->help appreciated * Chest CT (04/30/18): right middle lobe and lower lobe infiltrate. Mild atelectasis both posterior sulci. Vague ground glass opacities both lower lung zones. Centrilobular emphsematous changes. Mild Aneurysmal dilatation of the ascending thoracic aorta. cardiomegaly with small pericardial effusion. Chroic compression fracture L2 segment. Mild splenomegaly. Cholecystectomy. * Lexiscan (Dr. Bliss; 02/02/18): EF 72%. Normal study with no evidence of ischemia (see full report) * ECHO, Holtor, and Carotid dopplers (06/07): within normal limits 5) History of prior CVA with residual left sided weakness Assessment/Plan * Statin on hold given transaminitis * Aspirin 81mg PO daily * Toprol XL 25mg PO daily 6) Fall Assessment/Plan * Patient typically uses walker at home * Head CT shows mild to moderate chronic periventricular white matter ischemic changes multiple more discrete deep and subcortical white matter as well basal nuclei and possibly brainstem lacunar type infarcts. Moderate to significant generalized volume loss. * PT/OT eval 7) Low HDL Assessment/Plan * Diet modifications * HDL: 15 (lipid panel is within normal limits except for HDL) 8) History of ulcerative colitis Assessment/Plan * GI (Dr. Coates) on consult-->help appreciated * per GI consult: last colonoscopy was 03/01/2015 and showed pseudopolyps in the descending colon and quiescent colitis. * C+S, C diff, occult blood, leukocytes, calprotectin. Doubt exacerbation of colitis. * 05/03/18: no ova and parasite seen * C Dif: negative * Stool leukocytes: negative * Stool occult Blood: negative * No salmonella, no shigella, no camplyobacter * pending calprotectin, giardia, anca 9) Renal Cysts Assessment/Plan * noted in abdominal US * need to monitored as outpatient * Urine culture: negative for UTI 10) Prophylaxis * DVT: SCDs, Heparin 5000U SC Q12h * medical office manager: Patient has been accepted to [facility] admission for rehab Disposition: we will need to f/u ID for abx and duration in light of transaminitis. Patient does have bed available at rehab. Will need to see if any further workup by GI. trend lfts
[2018-05-04 06:53] LABS: ALT/SGPT 85 U/L (21-72); AST/SGOT 102 U/L (17-59); BLOOD UREA NITROGEN 12 mg/dL (9-20); CALCIUM 8.8 mg/dl (8.6-10.4); GFR AFRICAN-AMERICAN > 60; GFR NON-AFRICAN AMERICAN > 60
--- NOTE | 2018-05-04 07:50 | CP.PCM.PN ---
Subjective - Date & Time of Evaluation Date of Evaluation: 05/04/18 Time of Evaluation: 07:47 - Subjective Subjective: Patient denies having nausea, vomiting, abdominal pain. He was unable to cooperate for MRCP yesterday. LFTs continue to fluctuate: AST 102 (98), ALT 85 (73), ALKP 383 (326). Objective - Vital Signs/Intake and Output Vital Signs (last 24 hours): Temp Pulse Resp BP Pulse Ox 98.3 F 75 20 135/76 95 05/04/18 00:00 05/04/18 00:00 05/04/18 00:00 05/04/18 00:00 05/04/18 00:00 - Medications Medications: Current Medications Aspirin (Aspirin Chewable) 81 mg PO DAILY [facility] Last Admin: 05/03/18 09:51 Dose: 81 mg Heparin Sodium (Porcine) (Heparin) 5,000 units SC Q12 [facility] Last Admin: 05/03/18 21:18 Dose: 5,000 units Azithromycin 500 mg/ Sodium (Chloride) 250 mls @ 250 mls/hr IVPB DAILY [facility] PRN Reason: Protocol Last Admin: 05/03/18 09:51 Dose: 250 mls/hr Piperacillin Sod/Tazobactam Sod (Zosyn 3.375 Gm Iv Premix) 3.375 gm in 50 mls @ 100 mls/hr IVPB Q8H [facility] PRN Reason: Protocol Last Admin: 05/04/18 05:39 Dose: 100 mls/hr Lactobacillus Acidophilus (Bacid Acidophilus) 1 cap PO BID [facility] Last Admin: 05/03/18 17:39 Dose: 1 cap Metoprolol Succinate (Toprol Xl) 25 mg PO DAILY [facility] Last Admin: 05/03/18 09:51 Dose: 25 mg - Labs Labs: 05/04/18 06:20 05/04/18 06:20 PT 13.5 SECONDS (9.7-12.2) H 04/29/18 18:22 INR 1.2 04/29/18 18:22 APTT 39 SECONDS (21-34) H 04/29/18 18:22 - Constitutional Appears: No Acute Distress - Head Exam Head Exam: ATRAUMATIC, NORMOCEPHALIC - Eye Exam Eye Exam: EOMI, PERRL - Neck Exam Neck Exam: absent: Lymphadenopathy, Thyromegaly - Respiratory Exam Respiratory Exam: NORMAL BREATHING PATTERN. absent: Rales, Rhonchi, Wheezes - Cardiovascular Exam Cardiovascular Exam: REGULAR RHYTHM, +S1, +S2. absent: Gallop, Rubs, Murmur - GI/Abdominal Exam GI & Abdominal Exam: Soft, Normal Bowel Sounds. absent: Tenderness, Mass, Organomegaly - Rectal Exam Rectal Exam: Deferred - Extremities Exam Extremities Exam: absent: Calf Tenderness, Pedal Edema Assessment and Plan (1) Diarrhea Assessment & Plan: Diarrhea has resolved. Status: Resolved (2) Liver enzyme elevation Assessment & Plan: Patient could not cooperated for MRCP yesterday. LFTs are slightly higher this morning: AST 102 (98), ALT 85 (73), ALKP 383 (326). Possibilities include sepsis, drug-induced, hepatic congestion, sclerosing cholangitis. Potentially hepatotoxic medications include azithromycin and rosuvastatin. Will discontinue rosuvastatin for now and plan to stop antibiotics as soon as possible. Status: Acute
[2018-05-04 08:36] LABS: BANDS 3 % (0-2); EOSINOPHIL 2 % (0-4); LYMPHOCYTE 13 % (20-40); MONOCYTE 4 % (0-10); MYELOCYTE 1 % (0-0); NEUTROPHIL 77 % (50-75); PLATELET ESTIMATE NORMAL (NORMAL); TOTAL CELLS COUNTED 100
[2018-05-04 08:37] LABS: ANISOCYTOSIS SLIGHT; HYPOCHROMIC SLIGHT; POIKILOCYTOSIS SLIGHT; TARGET CELLS SLIGHT
--- NOTE | 2018-05-04 09:22 | CP.PCM.PN ---
Subjective - Date & Time of Evaluation Date of Evaluation: 05/04/18 Time of Evaluation: 08:00 - Subjective Subjective: Norm Hanna, PGY1 Cardiology Progress Note for Dr. Bliss Patient was seen and examined at bedside this morning. Patient denied lightheadedness, dizziness, headache, chest pain, shortness of breath, abdominal pain, nausea, vomiting, diarrhea. No changes overnight. Patient went for MRCP yesterday but test was not done since patient was uncooperative. This morning, patient said that he does not want to go for tests and procedures. A full 12 point ROS was conducted and unremarkable except as stated above. Objective - Vital Signs/Intake and Output Vital Signs (last 24 hours): Temp Pulse Resp BP Pulse Ox 98.1 F 77 18 128/68 95 05/04/18 08:00 05/04/18 08:00 05/04/18 08:00 05/04/18 08:00 05/04/18 08:00 - Medications Medications: Current Medications Aspirin (Aspirin Chewable) 81 mg PO DAILY [facility] Last Admin: 05/03/18 09:51 Dose: 81 mg Heparin Sodium (Porcine) (Heparin) 5,000 units SC Q12 [facility] Last Admin: 05/03/18 21:18 Dose: 5,000 units Azithromycin 500 mg/ Sodium (Chloride) 250 mls @ 250 mls/hr IVPB DAILY [facility] PRN Reason: Protocol Last Admin: 05/03/18 09:51 Dose: 250 mls/hr Piperacillin Sod/Tazobactam Sod (Zosyn 3.375 Gm Iv Premix) 3.375 gm in 50 mls @ 100 mls/hr IVPB Q8H [facility] PRN Reason: Protocol Last Admin: 05/04/18 05:39 Dose: 100 mls/hr Lactobacillus Acidophilus (Bacid Acidophilus) 1 cap PO BID [facility] Last Admin: 05/03/18 17:39 Dose: 1 cap Metoprolol Succinate (Toprol Xl) 25 mg PO DAILY [facility] Last Admin: 05/03/18 09:51 Dose: 25 mg - Labs Labs: 05/04/18 06:20 05/04/18 06:20 PT 13.5 SECONDS (9.7-12.2) H 04/29/18 18:22 INR 1.2 04/29/18 18:22 APTT 39 SECONDS (21-34) H 04/29/18 18:22 - Constitutional Appears: Well, No Acute Distress - Head Exam Head Exam: ATRAUMATIC, NORMAL INSPECTION, NORMOCEPHALIC - Eye Exam Eye Exam: EOMI, Normal appearance, PERRL. absent: Scleral icterus Pupil Exam: NORMAL ACCOMODATION, PERRL - ENT Exam ENT Exam: Mucous Membranes Moist - Neck Exam Neck Exam: Full ROM - Respiratory Exam Respiratory Exam: Clear to Ausculation Bilateral, NORMAL BREATHING PATTERN. absent: Accessory Muscle Use, Rales, Rhonchi, Wheezes, Respiratory Distress - Cardiovascular Exam Cardiovascular Exam: REGULAR RHYTHM, +S1, +S2. absent: Murmur - GI/Abdominal Exam GI & Abdominal Exam: Soft, Normal Bowel Sounds. absent: Tenderness - Extremities Exam Extremities Exam: Full ROM, Normal Capillary Refill, Normal Inspection. absent : Joint Swelling, Pedal Edema, Tenderness - Back Exam Back Exam: NORMAL INSPECTION - Neurological Exam Neurological Exam: Alert, Awake, Oriented x3 Neuro motor strength exam: Left Upper Extremity: 5, Right Upper Extremity: 5, Left Lower Extremity: 5, Right Lower Extremity: 5 - Skin Skin Exam: Dry, Intact, Normal Color, Warm. absent: Cyanosis, Pallor, Petechiae , Rash Additional comments: Negative for jaundice. Assessment and Plan - Assessment and Plan (Free Text) Assessment: Patient is a 87 y/o M with PMHx of HTN who presented to the ED for weakness. Patient was found to have pneumonia on admission. CXR showed right lower lobe pneumonia. CT Chest/Abd indicated right mid and low lobe pneumonia, vague ground glass opacities of lower lung zones, and mild anuerysmal dilation of descending aorta. Patient was treated with antibiotics on the floor; condition is improving with vital signs stable. Cardiology was consulted for HTN and further evaluation of cardiac history. Patient has been grossly asymptomatic with stable vital signs. On labs, patient noted to have fluctuating transaminitis with elevated ALP. Plan: HTN - resolved - Currently normotensive (BP 135/76) - No ischemic symptoms during interview - c/w metoprolol 25 mg PO (home med), BP well controlled - c/w home meds - Joes (Dr. Bliss; 02/02/18): EF 72%. Normal study with no evidence of ischemia (see full report) - ECHO, Holtor, and Carotid dopplers (06/07): within normal limits - May follow up with weigher packing outpatient Right Mid-Lower Lobe Pneumonia - improving - Leukocytosis trending downwards (recent wbc 14.8) - Strep pneumo, mycoplasma pneumo, legionella all negative - Blood cultures- no growth - Procalcitonin within normal limits - c/w antibiotic coverage - f/u ID recs - CT Chest/Abd: right mid-low lobe PNA, vague ground glass opacities in both lower lung zones. Cardiomegaly with small pericardial effusion. Mild aneurysmal dilation of ascending aorta. - CXR: right lower lobe PNA. Transaminitis - LFTs trending down (AST/ALT 102/85); ALP 383 - Avoid hepatotoxic agents; hold statins for now - Possible reason for LFTs: consider sepsis, hepatotoxic agents, sclerosing cholangitis - Patient refused MRCP on 05/03 - Abdominal US: multiple renal cysts - f/u ID recs - f/u GI recs - Negative blood cx, negative urine cx - Hepatic panel negative DVT ppx: SCDs, Hep SC GI ppx: not indicated Dispo: There are no cardiac issues at this time. Patient may follow up with weigher packing as outpatient. Case was discussed and reviewed with Drafter Chief Design Dr. Bliss.
[2018-05-04] MEDS: Azithromycin 500 MG in Sodium Chloride 0.9% 250 ML IVPB SCH (09:40)
[2018-05-04] MEDS: Metoprolol Succinate 25 mg XL Tab PO SCH (09:40)
[2018-05-04] MEDS: Lactobacillus Acidophilus 500 MU Cap PO SCH ×2 (09:40→17:48)
[2018-05-04 11:10] LABS: HAV AB (IGM) Nonreactive (Nonreactive)
[2018-05-05 00:55] VITALS: PULSE 78
[2018-05-05] MEDS: Piperacill/Tazo 3.375gm in Dex 3.375 GM/50 ML BAG IVPB SCH (05:15)
--- NOTE | 2018-05-05 06:53 | CP.PCM.PN ---
Subjective - Date & Time of Evaluation Date of Evaluation: 05/05/18 Time of Evaluation: 06:53 - Subjective Subjective: Resident Progress Note for Hospitalist Service Patient examined at bedside. No acute events overnight. Patient is eating and drinking well. Patient has no other complaints at this time. Denies headache, dizziness, chest pain, shortness of breath, abdominal pain, changes in bowel movements, dysuria. Objective - Vital Signs/Intake and Output Vital Signs (last 24 hours): Temp Pulse Resp BP Pulse Ox 98.3 F 78 20 123/73 100 05/04/18 23:00 05/04/18 23:00 05/04/18 23:00 05/04/18 23:00 05/04/18 23:00 Intake and Output: 05/04/18 05/05/18 18:59 06:59 Intake Total 350 Output Total 1725 Balance -1375 - Medications Medications: Current Medications Aspirin (Aspirin Chewable) 81 mg PO DAILY [facility] Last Admin: 05/04/18 09:40 Dose: 81 mg Heparin Sodium (Porcine) (Heparin) 5,000 units SC Q12 [facility] Last Admin: 05/04/18 21:25 Dose: 5,000 units Piperacillin Sod/Tazobactam Sod (Zosyn 3.375 Gm Iv Premix) 3.375 gm in 50 mls @ 100 mls/hr IVPB Q8H [facility] PRN Reason: Protocol Stop: 05/07/18 14:00 Last Admin: 05/05/18 05:15 Dose: 100 mls/hr Lactobacillus Acidophilus (Bacid Acidophilus) 1 cap PO BID [facility] Last Admin: 05/04/18 17:48 Dose: 1 cap Metoprolol Succinate (Toprol Xl) 25 mg PO DAILY [facility] Last Admin: 05/04/18 09:40 Dose: 25 mg - Labs Labs: 05/04/18 06:20 05/04/18 06:20 PT 13.5 SECONDS (9.7-12.2) H 04/29/18 18:22 INR 1.2 04/29/18 18:22 APTT 39 SECONDS (21-34) H 04/29/18 18:22 - Additional Findings Additional findings: - Constitutional Appears: Well, No Acute Distress - Head Exam Head Exam: NORMOCEPHALIC Additional comments: Small abrasions on head from recent fall - Eye Exam Eye Exam: EOMI, Normal appearance - ENT Exam ENT Exam: Mucous Membranes Moist, Normal Exam - Neck Exam Neck Exam: Full ROM, Normal Inspection - Respiratory Exam Respiratory Exam: Clear to Auscultation Bilateral, NORMAL BREATHING PATTERN. absent: Rhonchi, Wheezes, Respiratory Distress - Cardiovascular Exam Cardiovascular Exam: REGULAR RHYTHM, +S1, +S2 - GI/Abdominal Exam GI & Abdominal Exam: Soft, Normal Bowel Sounds. absent: Distended, Firm, Tenderness, Organomegaly - Extremities Exam Extremities Exam: Normal Capillary Refill, Normal Inspection. absent: Tenderness - Back Exam Back Exam: NORMAL INSPECTION - Neurological Exam Neurological Exam: Alert, Awake - Psychiatric Exam Psychiatric exam: Normal Affect, Normal Mood - Skin Skin Exam: Dry, Intact Additional comments: Ecchymosis on right hip from fall Assessment and Plan - Assessment and Plan (Free Text) Plan: Pneumonia - Afebrile - Leukocytosis stable - Chest CT confirm consolidation changes in right lower lobe pneumonia. Refer to complete report - Strep pneumo, mycoplasma pneumo, legionella negative - Blood cultures- no growth - Procalcitonin within normal limits - Lactobacillus acidophilus 1 cap PO BID started 04/30/18 - Zosyn 3.375 grams IV Q8H (to be discontinued on Thursday) - Continue to monitor - F/U ID recs Transaminitis - Avoid hepatotoxic agents. Hold Crestor at this time. - GI recommendations . Abdominal ultrasound imaging - CBD 7.7mm No stones or ductal dilatation noted. - Abdomen CT: Inferior margin of the unenhanced liver incompletely visualized. The visualized portions of the liver unremarkable without masses collections or calcifications. Cholecystectomy. Refer to complete report - Continue to monitor labs - F/U GI labs - MRCP attempted, however was not able to be completed as patient was unable to cooperate Hypertension - Continue home medication: Metoprolol 25mg PO daily - Heart healthy diet - Cardiology consulted. Recs appreciated. Fall - Patient has history of CVA with residual left sided weakness - Patient typically uses walker at home - Head CT shows mild to moderate chronic periventricular white matter ischemic changes multiple more discrete deep and subcortical white matter as well basal nuclei and possibly brainstem lacunar type infarcts. Moderate to significant generalized volume loss. - PT/OT Low HDL - Diet modifications - Patient may benefit from Niacin. Patient to follow up with primary medical doctor regarding further management. History of ulcerative colitis - GI consulted. Per notes, doubtful of IBD flair in light of no current complaints of diarrhea - F/U GI recommendations Prophylaxis - DVT: SCDs, Heparin 5000U SC Q12h - GI: not indicated Disp- Patient approved fo rehab placement. Pending resolution of transaminitis. Sana Cohen PGY-1
[2018-05-05 07:04] LABS: BASO # 0.1 K/uL (0.0-0.2); BASO % 0.4 % (0.0-2.0); EOS # 0.2 K/uL (0.0-0.7); EOS % 1.5 % (0.0-4.0); HEMOGLOBIN 11.4 g/dL (12.0-18.0); LYMPH # 1.6 K/uL (1.0-4.3); MEAN CORPUSCULAR HEMOGLOBIN 29.3 pg (27.0-31.0); MEAN CORPUSCULAR HGB CONC 34.1 g/dL (33.0-37.0); MEAN PLATELET VOLUME 7.9 fL (7.2-11.7); MONO # 0.8 K/uL (0.0-0.8); MONO % 5.1 % (0.0-10.0); NEUT # 12.2 K/uL (1.8-7.0); RBC 3.89 Mil/uL (4.40-5.90); RED CELL DISTRIBUTION WIDTH 14.9 % (11.5-14.5); WHITE BLOOD COUNT 14.9 K/uL (4.8-10.8)
[2018-05-05 07:39] LABS: ALBUMIN 2.8 g/dL (3.5-5.0); ALT/SGPT 80 U/L (21-72); AST/SGOT 74 U/L (17-59); BLOOD UREA NITROGEN 14 mg/dL (9-20); CALCIUM 8.2 mg/dl (8.6-10.4); GFR AFRICAN-AMERICAN > 60; GFR NON-AFRICAN AMERICAN > 60
[2018-05-05 08:05] VITALS: BP 138/68; RESP 18; TEMP 98; O2SAT 99
[2018-05-05] MEDS: Lactobacillus Acidophilus 500 MU Cap PO SCH (10:05)
[2018-05-05] MEDS: Metoprolol Succinate 25 mg XL Tab PO SCH (10:05)
[2018-05-05] MEDS ORDERED: Amoxicillin-Clav 875-125 mg Tab PO SCH (11:45)
--- NOTE | 2018-05-05 15:00 | CP.PCM.DIS ---
<Sana Cohen L - Last Filed: 05/05/18 16:29> Provider - Provider Date of Admission: 04/29/18 19:54 Attending physician: Joslyn Simmons DO Primary care physician: Dr. Henderson Consults: Dr. Izaiah Gonzales Time Spent in preparation of Discharge (in minutes): 45 Diagnosis - Discharge Diagnosis (1) Pneumonia Status: Resolved (2) Hypertension Status: Chronic Hospital Course - Lab Results Lab Results: Micro Results 04/29/18 18:00 Blood Blood Culture - Final NO GROWTH AFTER 5 DAYS 04/29/18 18:00 Blood Gram Stain - Final TEST NOT PERFORMED 04/29/18 18:30 Blood Blood Culture - Final NO GROWTH AFTER 5 DAYS 04/29/18 18:30 Blood Gram Stain - Final TEST NOT PERFORMED 05/01/18 21:44 Stool Stool Culture - Final NO SALMONELLA, SHIGELLA OR CAMPYLOBACTER ISOLATED. 05/01/18 21:44 Stool Ova and Parasite Concentrate Exam - Final 04/29/18 18:42 Urine Urine Culture - Final No Growth (<1,000 CFU/ML) Most Recent Lab Values WBC 14.9 K/uL (4.8-10.8) H 05/05/18 06:58 RBC 3.89 Mil/uL (4.40-5.90) L 05/05/18 06:58 Hgb 11.4 g/dL (12.0-18.0) L 05/05/18 06:58 Hct 33.4 % (35.0-51.0) L 05/05/18 06:58 MCV 86.0 fL (80.0-94.0) 05/05/18 06:58 MCH 29.3 pg (27.0-31.0) 05/05/18 06:58 MCHC 34.1 g/dL (33.0-37.0) 05/05/18 06:58 RDW 14.9 % (11.5-14.5) H 05/05/18 06:58 Plt Count 332 K/uL (130-400) 05/05/18 06:58 MPV 7.9 fL (7.2-11.7) 05/05/18 06:58 Neut % (Auto) 82.0 % (50.0-75.0) H 05/05/18 06:58 Lymph % (Auto) 11.0 % (20.0-40.0) L 05/05/18 06:58 [place] % (Auto) 5.1 % (0.0-10.0) 05/05/18 06:58 Eos % (Auto) 1.5 % (0.0-4.0) 05/05/18 06:58 Baso % (Auto) 0.4 % (0.0-2.0) 05/05/18 06:58 Neut # (Auto) 12.2 K/uL (1.8-7.0) H 05/05/18 06:58 Lymph # (Auto) 1.6 K/uL (1.0-4.3) 05/05/18 06:58 [place] # (Auto) 0.8 K/uL (0.0-0.8) 05/05/18 06:58 Eos # (Auto) 0.2 K/uL (0.0-0.7) 05/05/18 06:58 Baso # (Auto) 0.1 K/uL (0.0-0.2) 05/05/18 06:58 Neutrophils % (Manual) 77 % (50-75) H 05/04/18 06:20 Band Neutrophils % 3 % (0-2) H 05/04/18 06:20 Lymphocytes % (Manual) 13 % (20-40) L 05/04/18 06:20 Monocytes % (Manual) 4 % (0-10) 05/04/18 06:20 Eosinophils % (Manual) 2 % (0-4) 05/04/18 06:20 Metamyelocytes % 3 % (0-0) H 05/03/18 08:18 Myelocytes % 1 % (0-0) H 05/04/18 06:20 Platelet Estimate Normal (NORMAL) 05/04/18 06:20 Large Platelets Present 05/01/18 07:19 RBC Morphology Normal 05/03/18 08:18 Polychromasia Slight 05/01/18 07:19 Hypochromasia (manual) Slight 05/04/18 06:20 Poikilocytosis (manual Slight 05/04/18 06:20 Anisocytosis (manual) Slight 05/04/18 06:20 Target Cells Slight 05/04/18 06:20 PT 13.5 SECONDS (9.7-12.2) H 04/29/18 18:22 INR 1.2 04/29/18 18:22 APTT 39 SECONDS (21-34) H 04/29/18 18:22 pO2 49 mm/Hg (30-55) 04/29/18 19:40 VBG pH 7.47 (7.32-7.43) H 04/29/18 19:40 VBG pCO2 36 mmHg (40-60) L 04/29/18 19:40 VBG HCO3 26.7 mmol/L 04/29/18 19:40 VBG Total CO2 27.3 mmol/L (22-28) 04/29/18 19:40 VBG O2 Sat (Calc) 88.1 % (40-65) H 04/29/18 19:40 VBG Base Excess 2.7 mmol/L (0.0-2.0) H 04/29/18 19:40 VBG Potassium 2.8 mmol/L (3.6-5.2) L 04/29/18 19:40 Sodium 140.0 mmol/l (132-148) 04/29/18 19:40 Chloride 107.0 mmol/L (98-107) 04/29/18 19:40 Glucose 95 mg/dl (75-110) 04/29/18 19:40 Lactate 1.1 mmol/L (0.7-2.1) 04/29/18 19:40 FiO2 21.0 % 04/29/18 19:40 Sodium 136 mmol/L (132-148) 05/05/18 06:58 Potassium 4.0 mmol/L (3.6-5.2) 05/05/18 06:58 Chloride 104 mmol/L (98-107) 05/05/18 06:58 Carbon Dioxide 24 mmol/L (22-30) 05/05/18 06:58 Anion Gap 12 (10-20) 05/05/18 06:58 BUN 14 mg/dL (9-20) 05/05/18 06:58 Creatinine 0.8 mg/dL (0.8-1.5) 05/05/18 06:58 Est GFR ( Amer) > 60 05/05/18 06:58 Est GFR (Non-Af Amer) > 60 05/05/18 06:58 Random Glucose 101 mg/dL (75-110) 05/05/18 06:58 Calcium 8.2 mg/dl (8.6-10.4) L 05/05/18 06:58 Phosphorus 3.3 mg/dL (2.5-4.5) 05/05/18 06:58 Magnesium 1.7 mg/dL (1.6-2.3) 05/05/18 06:58 Total Bilirubin 0.6 mg/dL (0.2-1.3) 05/05/18 06:58 Direct Bilirubin 0.5 mg/dL (0.0-0.4) H 05/02/18 07:27 GGT 190 U/L (8-78) H 05/02/18 07:27 AST 74 U/L (17-59) H D 05/05/18 06:58 ALT 80 U/L (21-72) H 05/05/18 06:58 Alkaline Phosphatase 348 U/L (38-126) H 05/05/18 06:58 Total Creatine Kinase 236 U/L (55-170) H 04/29/18 18:22 CK-MB (Mass) 4.51 ng/mL (0.0-3.38) H 04/29/18 18:22 NT-Pro-B Natriuret Pep 295 pg/mL (0-900) 04/29/18 18:22 Total Protein 5.6 g/dL (6.3-8.3) L 05/05/18 06:58 Albumin 2.8 g/dL (3.5-5.0) L 05/05/18 06:58 Globulin 2.8 gm/dL (2.2-3.9) 05/05/18 06:58 Albumin/Globulin Ratio 1.0 (1.0-2.1) 05/05/18 06:58 Triglycerides 82 mg/dL (0-149) 05/01/18 07:19 Cholesterol 91 mg/dL (0-199) 05/01/18 07:19 LDL Cholesterol Direct 41 mg/dL (0-129) 05/01/18 07:19 HDL Cholesterol 15 mg/dL (30-70) L 05/01/18 07:19 Procalcitonin 0.47 NG/ML (0.19-0.49) 04/30/18 01:56 Free T4 1.71 ng/dL (0.78-2.19) 05/01/18 07:19 TSH 3rd Generation 0.63 mIU/L (0.46-4.68) 05/01/18 07:19 Venous Blood Potassium 2.8 mmol/L (3.6-5.2) L 04/29/18 19:40 Urine Color Yellow (YELLOW) 08 18:42 Urine Clarity Clear (Clear) 04/29/18 18:42 Urine pH 6.0 (5.0-8.0) 08 18:42 Ur Specific [place] 1.016 (1.003-1.030) 04/29/18 18:42 Urine Protein 1+ mg/dL (NEGATIVE) H 04/29/18 18:42 Urine Glucose (UA) Normal mg/dL (Normal) 04/29/18 18:42 Urine Ketones Negative mg/dL (NEGATIVE) 04/29/18 18:42 Urine Blood 1+ (NEGATIVE) H 04/29/18 18:42 Urine Nitrate Negative (NEGATIVE) 04/29/18 18:42 Urine Bilirubin Negative (NEGATIVE) 04/29/18 18:42 Urine Urobilinogen Normal mg/dL (0.2-1.0) 08 18:42 Ur Leukocyte Esterase Neg Vicente/uL (Negative) 04/29/18 18:42 Urine WBC (Auto) 1 /hpf (0-5) 04/29/18 18:42 Urine RBC (Auto) 6 /hpf (0-3) H 04/29/18 18:42 Hyaline Casts 0-2 /lpf (0-2) 04/29/18 18:42 Stool Occult Blood Negative (NEGATIVE) 05/02/18 08:25 Stool Leukocytes, Qual Negative (NEGATIVE) 04/30/18 14:12 C. difficile Ag & Toxin Negative (NEGATIVE) 04/30/18 14:11 Hepatitis A IgM Ab Nonreactive (Nonreactive) 05/01/18 07:19 Hepatitis A Ab Total Reactive (Nonreactive) H 05/01/18 07:19 Hep Bs Antigen Negative (NEGATIVE) 05/01/18 07:19 Hep Bs Antibody Negative (NEGATIVE) 05/01/18 07:19 Hep B Core IgM Ab Negative (NEGATIVE) 05/01/18 07:19 Hepatitis C Antibody Negative (NEGATIVE) 05/01/18 07:19 Influenza Typ A,B (EIA) Negative for flu a/b (NEGATIVE) 04/30/18 13:31 H.influenzae Type B Ag Negative (NEGATIVE) 04/30/18 15:55 Ur L.pneumophila Ag Negative (NEGATIVE) 04/30/18 15:55 Mycoplasma pneumon IgM Negative (NEGATIVE) 04/30/18 01:56 N.meningitidis ACY/W135 Negative (NEGATIVE) 04/30/18 15:55 N.meningi B/E.coli K1 Ag Negative (NEGATIVE) 04/30/18 15:55 Group B Strep Antigen Negative (NEGATIVE) 04/30/18 15:55 S. pneumoniae Antigen Negative (NEGATIVE) 04/30/18 15:55 - Hospital Course Hospital Course: On admission: Patient is an 87 year old male with a past medical history of hypertension. Patient is a poor historian and states he is not sure why he came to the hospital and that his PMD sent him to the ER. The patient is oriented to place, but does not respond to questioning about time. Per the ER physician, the patient was brought in due to weakness. Chest xray was ordered while in ED and showed right lower lobe pneumonia. The patient has no complaints at time of examination. He states that he occasionally has a cough, but denies having a cough currently. Remaining review of systems was negative. During hospital stay: Chest CT was done on 04/30/18 which showed right middle lobe and lower lobe infiltrate. Mild atelectasis both posterior sulci. Vague ground glass opacities both lower lung zones. Centrilobular emphsematous changes. Mild Aneurysmal dilatation of the ascending thoracic aorta. cardiomegaly with small pericardial effusion. Chroic compression fracture L2 segment. Mild splenomegaly. Cholecystectomy. Chest xray showed right lower lobe pneumonia. Strep pneumo, mycoplasma pneumo, legionella were all negative. Influenza was negative. Blood cultures (04/29/18) showed no growth after 4 days X2. Patient was treated with Azithromycin 500mg IV daily, Zosyn 3.375 IV Q8H, and Lactobacillus acidophilus 1 cap PO BID. He was also noted to have transaminitis. GI was consulted. MRCP was recommended. However, patient was unable to hold breath necessary for the test. Abdominal ultrasound shoed echogenic liver, with multiple renal cysts. Hepatitis A Ab total was reactive. Patient was also noted to have cardiomegaly on chest CT. Cardiology was consulted. Lexiscan with Dr. Bliss from January 2018 showed EF 72%. Normal study with no evidence of ischemia. ECHO, Holter, carotid dopplers from May 2017 were within normal limits. Patient was also noted to have recent fall. Head CT was done which shows mild to moderate chronic periventricular white matter ischemic changes multiple more discrete deep and subcortical white matter as well basal nuclei and possibly brainstem lacunar type infarcts. Moderate to significant generalized volume loss. As patient has history of ulcerative colitis, GI was consulted. Per GI consult last colonoscopy was 2014 and showed pseudopolyps in the descending colon and quiescent colitis. No ova and parasite was seen. Cdiff, stool leukocytes, stool occult blood, salmonella, shigella, campylobacter were all negative. On abdominal ultrasound, renal cysts were noted. Urine culture was negative for UTI. Patient is stable for transfer to [facility]. The following medications will need to be continued at [facility] ASA 81 mg PO 1x/day Heparin 5,000 Units SC Q8H Lactobacillus 1 cap PO BID through June 10, 2018 Metoprolol Succinat 25 mg PO 1x/day Augmentin 875/125 mg PO 2x/day through Thursday05/09/18 Crestor is being held because of the elevated LFTs [facility] will have to monitor his LFTs to make sure that they continue to trend down. Patient will need to follow up with his [employer] Dr. Coates after discharge from [facility] for further management of his Ulcerative Colitis and to follow up pending blood workup for the elevated LFTs Patient will need to follow up with his PMD after discharge prom [facility]. Through his PMD's office he will need repeat Chest X Ray in 6 to 8 weeks to make sure that the RLL Pneumonia has resolved. - Date & Time of H&P Date of H&P: 04/29/18 Time of H&P: 22:36 Discharge Exam - Additional Findings Additional findings: - Constitutional Appears: Well, No Acute Distress - Head Exam Head Exam: NORMOCEPHALIC Additional comments: Small abrasions on head from recent fall - Eye Exam Eye Exam: EOMI, Normal appearance - ENT Exam ENT Exam: Mucous Membranes Moist, Normal Exam - Respiratory Exam Respiratory Exam: Clear to Auscultation Bilateral, NORMAL BREATHING PATTERN. absent: Rhonchi, Wheezes, Respiratory Distress - Cardiovascular Exam Cardiovascular Exam: REGULAR RHYTHM, +S1, +S2 - GI/Abdominal Exam GI & Abdominal Exam: Soft, Normal Bowel Sounds. absent: Distended, Firm, Tenderness, Organomegaly - Extremities Exam Extremities Exam: Normal Capillary Refill, Normal Inspection. absent: Tenderness - Neurological Exam Neurological Exam: Alert, Awake - Psychiatric Exam Psychiatric exam: Normal Affect, Normal Mood - Skin Skin Exam: Dry, Intact Discharge Plan - Follow Up Plan Condition: FAIR Disposition: REHAB FACILITY/REHAB UNIT Instructions: Pneumonia, Adult (DC) Additional Instructions: Patient is stable for transfer to [facility]. The following medications will need to be continued at [facility]: ASA 81 mg PO 1x/day Heparin 5,000 Units SC Q8H Lactobacillus 1 cap PO BID through June 10, 2018 Metoprolol Succinat 25 mg PO 1x/day Augmentin 875/125 mg PO 2x/day through Thursday05/09/18 Crestor is being held because of the elevated LFTs [facility] will have to monitor his LFTs to make sure that they continue to trend down. Patient will need to follow up with his [employer] Dr. Coates after discharge from [facility] for further management of his Ulcerative Colitis and to follow up pending blood workup for the elevated LFTs Patient will need to follow up with his PMD after discharge prom [facility]. Through his PMD's office he will need repeat Chest X Ray in 6 to 8 weeks to make sure that the RLL Pneumonia has resolved. Micky Faust D.O. Referrals: Oswaldo Bliss MD [Staff Provider] - Bob Gonzales MD [Staff Provider] - Bassam Coates MD [Staff Provider] - <Micky Faust - Last Filed: 05/05/18 16:58> Provider - Provider Date of Admission: 04/29/18 19:54 Attending physician: Joslyn Simmons DO Time Spent in preparation of Discharge (in minutes): 40 Hospital Course - Lab Results Lab Results: Micro Results 04/29/18 18:00 Blood Blood Culture - Final NO GROWTH AFTER 5 DAYS 04/29/18 18:00 Blood Gram Stain - Final TEST NOT PERFORMED 04/29/18 18:30 Blood Blood Culture - Final NO GROWTH AFTER 5 DAYS 08/09/18 18:30 Blood Gram Stain - Final TEST NOT PERFORMED 05/01/18 21:44 Stool Stool Culture - Final NO SALMONELLA, SHIGELLA OR CAMPYLOBACTER ISOLATED. 05/01/18 21:44 Stool Ova and Parasite Concentrate Exam - Final 04/29/18 18:42 Urine Urine Culture - Final No Growth (<1,000 CFU/ML) Most Recent Lab Values WBC 14.9 K/uL (4.8-10.8) H 05/05/18 06:58 RBC 3.89 Mil/uL (4.40-5.90) L 05/05/18 06:58 Hgb 11.4 g/dL (12.0-18.0) L 05/05/18 06:58 Hct 33.4 % (35.0-51.0) L 05/05/18 06:58 MCV 86.0 fL (80.0-94.0) 05/05/18 06:58 MCH 29.3 pg (27.0-31.0) 05/05/18 06:58 MCHC 34.1 g/dL (33.0-37.0) 05/05/18 06:58 RDW 14.9 % (11.5-14.5) H 05/05/18 06:58 Plt Count 332 K/uL (130-400) 05/05/18 06:58 MPV 7.9 fL (7.2-11.7) 05/05/18 06:58 Neut % (Auto) 82.0 % (50.0-75.0) H 05/05/18 06:58 Lymph % (Auto) 11.0 % (20.0-40.0) L 05/05/18 06:58 [place] % (Auto) 5.1 % (0.0-10.0) 05/05/18 06:58 Eos % (Auto) 1.5 % (0.0-4.0) 05/05/18 06:58 Baso % (Auto) 0.4 % (0.0-2.0) 05/05/18 06:58 Neut # (Auto) 12.2 K/uL (1.8-7.0) H 05/05/18 06:58 Lymph # (Auto) 1.6 K/uL (1.0-4.3) 05/05/18 06:58 [place] # (Auto) 0.8 K/uL (0.0-0.8) 05/05/18 06:58 Eos # (Auto) 0.2 K/uL (0.0-0.7) 05/05/18 06:58 Baso # (Auto) 0.1 K/uL (0.0-0.2) 05/05/18 06:58 Neutrophils % (Manual) 77 % (50-75) H 05/04/18 06:20 Band Neutrophils % 3 % (0-2) H 05/04/18 06:20 Lymphocytes % (Manual) 13 % (20-40) L 05/04/18 06:20 Monocytes % (Manual) 4 % (0-10) 05/04/18 06:20 Eosinophils % (Manual) 2 % (0-4) 05/04/18 06:20 Metamyelocytes % 3 % (0-0) H 05/03/18 08:18 Myelocytes % 1 % (0-0) H 05/04/18 06:20 Platelet Estimate Normal (NORMAL) 05/04/18 06:20 Large Platelets Present 05/01/18 07:19 RBC Morphology Normal 05/03/18 08:18 Polychromasia Slight 05/01/18 07:19 Hypochromasia (manual) Slight 05/04/18 06:20 Poikilocytosis (manual Slight 05/04/18 06:20 Anisocytosis (manual) Slight 05/04/18 06:20 Target Cells Slight 05/04/18 06:20 PT 13.5 SECONDS (9.7-12.2) H 04/29/18 18:22 INR 1.2 04/29/18 18:22 APTT 39 SECONDS (21-34) H 04/29/18 18:22 pO2 49 mm/Hg (30-55) 04/29/18 19:40 VBG pH 7.47 (7.32-7.43) H 04/29/18 19:40 VBG pCO2 36 mmHg (40-60) L 04/29/18 19:40 VBG HCO3 26.7 mmol/L 04/29/18 19:40 VBG Total CO2 27.3 mmol/L (22-28) 04/29/18 19:40 VBG O2 Sat (Calc) 88.1 % (40-65) H 04/29/18 19:40 VBG Base Excess 2.7 mmol/L (0.0-2.0) H 04/29/18 19:40 VBG Potassium 2.8 mmol/L (3.6-5.2) L 04/29/18 19:40 Sodium 140.0 mmol/l (132-148) 04/29/18 19:40 Chloride 107.0 mmol/L (98-107) 04/29/18 19:40 Glucose 95 mg/dl (75-110) 04/29/18 19:40 Lactate 1.1 mmol/L (0.7-2.1) 04/29/18 19:40 FiO2 21.0 % 04/29/18 19:40 Sodium 136 mmol/L (132-148) 05/05/18 06:58 Potassium 4.0 mmol/L (3.6-5.2) 05/05/18 06:58 Chloride 104 mmol/L (98-107) 05/05/18 06:58 Carbon Dioxide 24 mmol/L (22-30) 05/05/18 06:58 Anion Gap 12 (10-20) 05/05/18 06:58 BUN 14 mg/dL (9-20) 05/05/18 06:58 Creatinine 0.8 mg/dL (0.8-1.5) 05/05/18 06:58 Est GFR ( Amer) > 60 05/05/18 06:58 Est GFR (Non-Af Amer) > 60 05/05/18 06:58 Random Glucose 101 mg/dL (75-110) 05/05/18 06:58 Calcium 8.2 mg/dl (8.6-10.4) L 05/05/18 06:58 Phosphorus 3.3 mg/dL (2.5-4.5) 05/05/18 06:58 Magnesium 1.7 mg/dL (1.6-2.3) 05/05/18 06:58 Total Bilirubin 0.6 mg/dL (0.2-1.3) 05/05/18 06:58 Direct Bilirubin 0.5 mg/dL (0.0-0.4) H 05/02/18 07:27 GGT 190 U/L (8-78) H 05/02/18 07:27 AST 74 U/L (17-59) H D 05/05/18 06:58 ALT 80 U/L (21-72) H 05/05/18 06:58 Alkaline Phosphatase 348 U/L (38-126) H 05/05/18 06:58 Total Creatine Kinase 236 U/L (55-170) H 04/29/18 18:22 CK-MB (Mass) 4.51 ng/mL (0.0-3.38) H 04/29/18 18:22 NT-Pro-B Natriuret Pep 295 pg/mL (0-900) 04/29/18 18:22 Total Protein 5.6 g/dL (6.3-8.3) L 05/05/18 06:58 Albumin 2.8 g/dL (3.5-5.0) L 05/05/18 06:58 Globulin 2.8 gm/dL (2.2-3.9) 05/05/18 06:58 Albumin/Globulin Ratio 1.0 (1.0-2.1) 05/05/18 06:58 Triglycerides 82 mg/dL (0-149) 05/01/18 07:19 Cholesterol 91 mg/dL (0-199) 05/01/18 07:19 LDL Cholesterol Direct 41 mg/dL (0-129) 05/01/18 07:19 HDL Cholesterol 15 mg/dL (30-70) L 05/01/18 07:19 Procalcitonin 0.47 NG/ML (0.19-0.49) 04/30/18 01:56 Free T4 1.71 ng/dL (0.78-2.19) 05/01/18 07:19 TSH 3rd Generation 0.63 mIU/L (0.46-4.68) 05/01/18 07:19 Venous Blood Potassium 2.8 mmol/L (3.6-5.2) L 04/29/18 19:40 Urine Color Yellow (YELLOW) 04/29/18 18:42 Urine Clarity Clear (Clear) 04/29/18 18:42 Urine pH 6.0 (5.0-8.0) 04/29/18 18:42 Ur Specific [place] 1.016 (1.003-1.030) 04/29/18 18:42 Urine Protein 1+ mg/dL (NEGATIVE) H 08/09/18 18:42 Urine Glucose (UA) Normal mg/dL (Normal) 04/29/18 18:42 Urine Ketones Negative mg/dL (NEGATIVE) 04/29/18 18:42 Urine Blood 1+ (NEGATIVE) H 04/29/18 18:42 Urine Nitrate Negative (NEGATIVE) 04/29/18 18:42 Urine Bilirubin Negative (NEGATIVE) 04/29/18 18:42 Urine Urobilinogen Normal mg/dL (0.2-1.0) 08 18:42 Ur Leukocyte Esterase Neg Vicente/uL (Negative) 04/29/18 18:42 Urine WBC (Auto) 1 /hpf (0-5) 04/29/18 18:42 Urine RBC (Auto) 6 /hpf (0-3) H 04/29/18 18:42 Hyaline Casts 0-2 /lpf (0-2) 04/29/18 18:42 Stool Occult Blood Negative (NEGATIVE) 05/02/18 08:25 Stool Leukocytes, Qual Negative (NEGATIVE) 04/30/18 14:12 Anti-Mitochondrial Ab Negative (Negative) 05/04/18 11:03 Anti-Smooth Muscle Ab Negative (Negative) 05/04/18 11:03 C. difficile Ag & Toxin Negative (NEGATIVE) 04/30/18 14:11 Hepatitis A IgM Ab Nonreactive (Nonreactive) 05/01/18 07:19 Hepatitis A Ab Total Reactive (Nonreactive) H 05/01/18 07:19 Hep Bs Antigen Negative (NEGATIVE) 05/01/18 07:19 Hep Bs Antibody Negative (NEGATIVE) 05/01/18 07:19 Hep B Core IgM Ab Negative (NEGATIVE) 05/01/18 07:19 Hepatitis C Antibody Negative (NEGATIVE) 05/01/18 07:19 Influenza Typ A,B (EIA) Negative for flu a/b (NEGATIVE) 04/30/18 13:31 H.influenzae Type B Ag Negative (NEGATIVE) 04/30/18 15:55 Ur L.pneumophila Ag Negative (NEGATIVE) 04/30/18 15:55 Mycoplasma pneumon IgM Negative (NEGATIVE) 04/30/18 01:56 N.meningitidis ACY/W135 Negative (NEGATIVE) 04/30/18 15:55 N.meningi B/E.coli K1 Ag Negative (NEGATIVE) 04/30/18 15:55 Group B Strep Antigen Negative (NEGATIVE) 04/30/18 15:55 S. pneumoniae Antigen Negative (NEGATIVE) 04/30/18 15:55 Attending/Attestation - Attestation I have personally seen and examined this patient.: Yes I have fully participated in the care of the patient.: Yes I have reviewed all pertinent clinical information, including history, physical exam and plan: Yes Notes (Text): 05/05/18 16:56 Patient was seen and examined shortly after resident Discharge instructions were gone over with resident Dr. Cohen. Message was left via voicemail by me for patient's Son Chiot explaining that patient was going to be transferred to [facility]. Transfer was coordinated by [employer] Pam. Micky Faust D.O.
== END 2018-05-05 15:04 | DRG 194 ==
LOC: C.ER 15:52 → C.9E 19:54 → C.5S 21:47
PROVIDERS: ADMIT Hospitalist; ATTEND Hospitalist
DX: J18.9 Pneumonia, unspecified organism (principal); I31.3 Pericardial effusion (noninflammatory); I69.354 Hemiplegia and hemiparesis following cerebral infarction affecting left non-dominant side; I10 Essential (primary) hypertension; F03.90 Unspecified dementia, unspecified severity, without behavioral disturbance, psychotic disturbance, mood disturbance, and anxiety; I51.7 Cardiomegaly; I71.2 Thoracic aortic aneurysm, without rupture; R33.9 Retention of urine, unspecified; R31.9 Hematuria, unspecified; R74.8 Abnormal levels of other serum enzymes; R74.0 Nonspecific elevation of levels of transaminase and lactic acid dehydrogenase [LDH]